=== PATIENT | female | born 1960 | race Caucasian/White ===

== ENCOUNTER 2016-12-07 10:35 | Day surgery (SDC) | payer OTHER ==
[2016-12-07 11:15] VITALS: BMI 36.7
[2016-12-07] MEDS ORDERED: Lidocaine 2% Inj (20ml) ONE (11:31)
[2016-12-07] MEDS ORDERED: Iodixanol 320 MG/ML 100 ML BOTTLE IV ONE (11:32)
[2016-12-07] MEDS ORDERED: Nitroglycerin 50mg in D5W 0 MG/0 ML BOTTLE IV ONE (11:32)
[2016-12-07 11:37] LABS: ADD MANUAL DIFF? NO
[2016-12-07] MEDS ORDERED: Midazolam 2 MG/2 ML VIAL ONE (11:38)
[2016-12-07 11:43] LABS: BASO # 0.04 K/mm3 (0.0-2.0); BASO % 0.4 % (0.0-3.0); GRAN # 6.67 (1.4-6.5); GRAN % 65.3 % (50.0-68.0); HEMATOCRIT 36.5 % (36.0-48.0); LYMPH # 3.1 (1.2-3.4); MEAN CELL VOLUME 89.2 fL (80.0-105.0); MEAN CORPUSCULAR HEMOGLOBIN 29.3 pg (25.0-35.0); MEAN CORPUSCULAR HGB CONC 32.9 g/dl (31.0-37.0); MEAN PLATELET VOLUME 9.9 fl (7.0-11.0); MONO # 0.4 (0.1-0.6); MONO % 4.3 % (1.0-6.0); PLATELET COUNT 355 10^3/uL (120.0-450.0); RED CELL DISTRIBUTION WIDTH 14.8 % (11.5-14.5); WHITE BLOOD COUNT 10.2 10^3/ul (4.5-11.0)
[2016-12-07 11:51] LABS: CALCIUM 9.7 mg/dL (8.4-10.5); POTASSIUM 5.4 mmol/L (3.6-5.0)
[2016-12-07 12:00] LABS: INR 1.01 (0.93-1.08); PARTIAL THROMBOPLASTIN TIME 26.1 Seconds (23.7-30.8)
--- NOTE | 2016-12-07 12:28 | CP.SDSHP ---
Same Day Surgery H & P - History Proposed Procedure: left arm fistulogram. Pre-Op Diagnosis: dysfunctional fistula /ESRD. - Previous Medical/Surgical History Cardiac: Hypertension, ASHD/CAD Endocrine/Metabolic: Diabetes, Obesity, Renal Disease Neuro: Backaches - Allergies Allergies: Allergies No Known Allergies Allergy (Verified 08/27/16 11:56) - Physical Exam General Appearance: wnl. Vital Signs: Vital Signs 12/07/16 11:20 Temperature 97.8 F Pulse Rate 68 Respiratory 20 Rate Blood Pressure 153/74 H O2 Sat by Pulse 98 Oximetry Mental Status: Alert & Oriented x3 Neuro: WNL Heart: WNL Lungs: WNL GI: WNL - {Optional Preform as Required} Other Pertinent Findings: hyperlipidemia. - Impression Impression: dysfunctional fistula. - Date & Time Date: 12/07/16 Time: 12:28 Short Stay Discharge - Short Stay Discharge Admitting Diagnosis/Reason for Visit: ESRD N18.6 Disposition: HOME/ ROUTINE Referrals: Jose Benavidez MD [Primary Care Provider] -
[2016-12-07] MEDS ORDERED: Oxycodone/Acetaminophen 5/325 mg Tab PO PRN (13:36)
[2016-12-07 14:30] VITALS: BP 173/78; PULSE 64; RESP 18; TEMP 97.7; O2SAT 99
--- NOTE | 2016-12-07 16:41 | VASCULAR ---
PROCEDURE: 1. Left upper extremity AV fistula angiogram HISTORY: End-stage renal disease. Malfunctioning AV access PHYSICIAN(S): Alf Lobato MD. TECHNIQUE: The relative risks and indications of the procedure were explained to the patient and her family and consent obtained. The patient was placed supine on the angiography table and the left arm prepped and draped in usual sterile fashion. Conscious sedation and monitoring provided throughout the procedure by a nurse. The left arm AV fistula was punctured near the elbow in an antegrade direction with a micropuncture set. A 5 Yoruba catheter was placed. An overlapping left upper extremity AV fistula angiogram was performed. Central venous imaging was obtained. A blood pressure cuff was applied near the access site and reflux of the arterial anastomosis performed. The catheter was removed and hemostasis obtained. FINDINGS: The patient's left brachial - cephalic fistula is patent. The arterial anastomosis is patent. The left cephalic vein is well developed. The drainage of the left cephalic vein centrally is bifid. There is a moderate stenosis in 1 of the branches but the drainage appears adequate without numerous collaterals seen. No intervention was performed. The left axillary vein, left subclavian vein, left innominate vein, and SVC are widely patent. IMPRESSION: 1. Patent left upper extremity AV fistula.
== END 2016-12-07 15:00 | disposition home or self-care (01) ==
LOC: SDSVAS 10:35
PROVIDERS: ATTEND Radiology Vascular & Interventional Radiology
DX: T82.511A Breakdown (mechanical) of surgically created arteriovenous shunt, initial encounter (principal); I12.0 Hypertensive chronic kidney disease with stage 5 chronic kidney disease or end stage renal disease; E11.22 Type 2 diabetes mellitus with diabetic chronic kidney disease; N18.6 End stage renal disease; I25.10 Atherosclerotic heart disease of native coronary artery without angina pectoris; E78.5 Hyperlipidemia, unspecified; Z99.2 Dependence on renal dialysis; Y83.2 Surgical operation with anastomosis, bypass or graft as the cause of abnormal reaction of the patient, or of later complication, without mention of misadventure at the time of the procedure; Z79.4 Long term (current) use of insulin

== ENCOUNTER 2017-01-05 15:32 | Emergency (ER) | payer OTHER ==
[2017-01-05 15:32] VITALS: BMI 36.7
[2017-01-05 16:12] VITALS: TEMP 97.5
--- NOTE | 2017-01-05 16:19 | RAD ---
HISTORY: sob r/o pna COMPARISON: 09/22/2016. FINDINGS: LUNGS: The lungs are clear. There is linear atelectasis in the left mid lung. There is mild pulmonary venous congestion. PLEURA: No significant pleural effusion identified, no pneumothorax apparent. CARDIOVASCULAR: There is persistent mild cardiomegaly. OSSEOUS STRUCTURES: No significant abnormalities. VISUALIZED UPPER ABDOMEN: Normal. OTHER FINDINGS: None. IMPRESSION: No active pulmonary disease. Persistent cardiomegaly and mild pulmonary venous congestion.
--- NOTE | 2017-01-05 16:25 | ED PDOC ---
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 As per triage note patient was sent for chest pain, however upon interviewing patient she denies cp using grinder dresser grinder dresser Peter Prieto. Patient states when she lies flat she gets sob, and at the HD center she was lying flat for 4 hours. Patient denies cough, denies fever or chills, denies headache, dizziness, denies lightheadedness, denies n/v/d. (Patricia Enriquez) Past Medical History - Provider Review Nursing Documentation Reviewed: Yes - Travel History Have you recently traveled outside [place] w/in the past 3 mons?: No - Infectious Disease Hx of Infectious Diseases: None - Cardiac Hx Pacemaker: No - Pulmonary Hx Respiratory Disorders: Yes Hx Asthma: Yes - Neurological Hx Paralysis: No - HEENT Hx HEENT Disorder: No - Renal Hx Dialysis: Yes Date of Last Dialysis Treatment: 08/27/16 - Endocrine/Metabolic Hx Diabetes Mellitus Type 2: Yes - Hematological/Oncological Hx Blood Transfusions: Yes Hx Blood Transfusion Reaction: No - Integumentary Hx Dermatological Disorder: No - Musculoskeletal/Rheumatological Hx Musculoskeletal Disorders: Yes - Gastrointestinal Hx Gastrointestinal Disorders: No - Genitourinary/Gynecological Other/Comment: ureremic encephalopathy - Psychiatric Hx Emotional Abuse: No Hx Physical Abuse: No Hx Substance Use: No - Surgical History Other/Comment: left upper arm av fistula - Anesthesia Hx Anesthesia Reactions: No Hx Malignant Hyperthermia: No - Suicidal Assessment Feels Threatened In Home Enviroment: No <Patricia Enriquez - Last Filed: 01/05/17 17:40> Family/Social History - Physician Review Nursing Documentation Reviewed: Yes Family/Social History: Diabetes, Hypertension, CAD/AL Smoking Status: Never Smoked Hx Alcohol Use: No Hx Substance Use: No <Patricia Enriquez - Last Filed: 01/05/17 17:40> Allergies/Home Meds <Patricia Enriquez - Last Filed: 01/05/17 17:40> <Lb Wang - Last Filed: 01/05/17 18:29> Allergies/Adverse Reactions: Allergies No Known Allergies Allergy (Verified 01/05/17 15:47) Home Medications: Home Meds Medication Instructions Recorded Confirmed Carvedilol [Coreg] 12.5 mg PO DAILY 12/07/16 12/07/16 Gabapentin [Neurontin] 300 mg PO TID 12/07/16 12/07/16 Insulin Detemir [Levemir] 18 unit SC HS 12/07/16 12/07/16 Review of Systems - Review of Systems Constitutional: Normal Eyes: Normal ENT: Normal Respiratory: SOB. absent: Cough, Sputum, Wheezing Cardiovascular: Normal Gastrointestinal: Normal Genitourinary Female: Normal Musculoskeletal: Normal Skin: Normal Neurological: Normal Endocrine: Normal Hemo/Lymphatic: Normal Psychiatric: Anxiety <Patricia Enriquez - Last Filed: 01/05/17 17:40> Physical Exam Temperature: Afebrile Blood Pressure: Normal Pulse: Regular Respiratory Rate: Tachypneic Appearance: Positive for: Non-Toxic, Comfortable, Other (anxious) Pain Distress: None Mental Status: Positive for: Alert and Oriented X 3 - Systems Exam Head: Present: Atraumatic, Normocephalic Pupils: Present: PERRL Extroacular Muscles: Present: EOMI Conjunctiva: No: Icteric Mouth: Present: Moist Mucous Membranes Neck: Present: Normal Range of Motion Respiratory/Chest: Present: Clear to Auscultation, Respiratory Distress (mild ) . No: Accessory Muscle Use, Wheezes, Rales Cardiovascular: Present: Regular Rate and Rhythm, Normal S1, S2. No: Murmurs Abdomen: Present: Normal Bowel Sounds. No: Tenderness, Distention Upper Extremity: Present: Normal Inspection. No: Cyanosis, Edema Lower Extremity: Present: Normal Inspection. No: Edema Neurological: Present: GCS=15 Skin: Present: Warm, Dry, Rashes, Normal Color Psychiatric: Present: Alert, Oriented x 3, Anxious <Patricia Enriquez - Last Filed: 01/05/17 17:40> Medical Decision Making Re-evaluation Time: 17:25 Reassessment Condition: Re-examined - EKG Interpretation Interpreted by ED Physician: Yes Type: 12 lead EKG <Patricia Enriquez - Last Filed: 01/05/17 17:40> - Lab Interpretations I have reviewed the lab results: Yes <Javon Wangfadi Brink - Last Filed: 01/05/17 18:29> ED Course and Treatment: 01/05/17 16:27 Patient is a 56 y/o with pmh of IDDM, htn, diabetic neuropathy, h/o diskitis, and ESRD ( on HD , Mon and Monday) c/o sob Differentials: fluid overload 2nd to inadequate HD, pneumonia versus chf versus anxiety. Less likely PE, no PE risk factors. Plan: cbc, cmp, bnp, ekg, chest x-ray attempt bipap. 01/05/17 17:15 On room air , patient is saturating at 100%. Patient 's sob has improved. Patient's daughter and son in law were in the room, and they stats patient told them she was lying in her back for 4 hours in the dialysis and when she woke up she got anxious and short of breath. Patient felt better after she was placed in the upright position and giving oxygen. Patient was also giving a stat dose of Xanax in the ED. Patient states she is feeling better, and the daughter is comfortable taking her home. Patient and family were giving the opportunity to ask questions, patient, and family states they have no questions. (Patricia Enriquez) Patient seen and examined with resident. Came up with treatment and disposition plan with resident. A 56 year old female who presents to the emergency department for evaluation of shortness of breath. Interview with translation monitor Peter Goodwin [id number]. She was lying in dialysis for 4 hours and she never lays flat. She woke up and got anxious because she thought she couldn't breathe. Additional HPI details as noted by the resident. On physical examination the patient appears anxious, is in mild respiratory distress, lungs are clear. EKG, Chest X-ray, lab worked ordered. Patient given Xanax for symptomatic control. EKG shows normal sinus rhythm at 68 BPM. Interpreted by me. CXR nl. 01/05/17 17:07 After oxygen patient felt better and is no longer short of breathe. She is calm and no longer anxious. will remove oxygen and reevaluate. 01/05/17 17:45 Patient no longer has symptoms. No shortness of breathe. Oxy Sat 100%RA. No longer feels anxious. Lungs are clear. She is with daughter who feels comfortable taking her home. (KathleenLb L) - Lab Interpretations Lab Results: 01/05/17 16:18 01/05/17 16:18 Lab Results 01/05/17 16:18: Sodium 136, Chloride 97 L, Potassium 3.6, Carbon Dioxide 24, Anion Gap 19, BUN 31 H, Creatinine 3.9 H, Est GFR ( Amer) 14, Est GFR ( Non-Af Amer) 12, Random Glucose 116 H, Calcium 9.6, Total Bilirubin 0.7, AST 27 , ALT 15, Alkaline Phosphatase 163 H, Lactate Dehydrogenase 521, Total Creatine Kinase 60, Troponin I < 0.01, NT-Pro-B Natriuret Pep 2830 H, Total Protein 8.5 H , Albumin 4.6, Globulin 3.9, Albumin/Globulin Ratio 1.2 01/05/17 16:18: pO2 43, VBG pH 7.54 H, VBG pCO2 34.0 L, VBG HCO3 29.1 H, VBG Total CO2 30.1 H, VBG O2 Sat (Calc) 81.3 H, VBG Base Excess 6.5 H, VBG Potassium 3.7, Sodium 138.0, Chloride 99.0, Glucose 119 H, Lactate 1.4, FiO2 21.0, Venous Blood Potassium 3.7 01/05/17 16:18: PT 10.7, INR 0.99, APTT 28.9 01/05/17 16:18: WBC 9.7, RBC 3.97, Hgb 11.9 L, Hct 35.0 L, MCV 88.2, MCH 30.0, MCHC 34.0, RDW 16.1 H, Plt Count 379, MPV 9.8, Gran % 74.8 H, Lymph % (Auto) 20.0 L, [place] % (Auto) 5.0, Eos % (Auto) 0.0 L, Baso % (Auto) 0.2, Gran # 7.25 H , Lymph # 1.9, [place] # 0.5, Eos # 0.0, Baso # 0.02 - RAD Interpretation Radiology Orders: 01/05/17 16:01 CHEST PORTABLE [RAD] Stat - EKG Interpretation EKG Interpretation (Text): 01/05/17 17:52 NSR at HR of 66 bmp Normal PA interval Mild qtc prolongation No ST/T wave changes. (Patricia Enriquez) - Medication Orders Current Medication Orders: Discontinued Medications Alprazolam (Xanax) 0.25 mg PO STAT STA PRN Reason: Protocol Stop: 01/05/17 16:31 Last Admin: 01/05/17 16:59 Dose: 0.25 mg <Patricia Enriquez - Last Filed: 01/05/17 17:40> - PA / GIFT CONSULTANT / Resident Statement MD/DO has reviewed & agrees with the documentation as recorded. MD/DO has examined the patient and agrees with the treatment plan. - Scribe Statement The provider has reviewed the documentation as recorded by the Scribe <Lb Wang - Last Filed: 01/05/17 18:29> - Scribe Statement Solange Christopher training under [facility] Provider Scribe Attestation: All medical record entries made by the Scribe were at my direction and personally dictated by me. I have reviewed the chart and agree that the record accurately reflects my personal performance of the history, physical exam, medical decision making, and the department course for this patient. I have also personally directed, reviewed, and agree with the discharge instructions and disposition. (Lb Wang) Disposition/Present on Arrival - Present on Arrival Any Indicators Present on Arrival: No History of DVT/PE: No History of Uncontrolled Diabetes: Yes Urinary Catheter: No History of Decub. Ulcer: No History Surgical Site Infection Following: None - Disposition Have Diagnosis and Disposition been Completed?: Yes Disposition Time: 17:35 Patient Plan: Discharge <Patricia Enriquez - Last Filed: 01/05/17 17:40> <Lb Wang - Last Filed: 01/05/17 18:29> - Disposition Diagnosis: Anxiety Disposition: HOME/ ROUTINE Condition: IMPROVED Discharge Instructions (ExitCare): Anxiety (ED) Additional Instructions: Please follow up with Dr Benavidez Please continue with your dialysis as currently scheduled Go tot the nearest emergency room if the symptoms reoccurs or worsens or if you have any new symptoms. Referrals: Jose Benavidez MD [Primary Care Provider] - Follow up with primary
[2017-01-05 16:41] LABS: ADD MANUAL DIFF? NO
[2017-01-05 16:47] LABS: VENOUS BLOOD GAS BASE EXCESS 6.5 mmol/L (0.0-2.0); VENOUS BLOOD PH 7.54 (7.32-7.43)
[2017-01-05 16:56] LABS: ALB/GLOB RATIO 1.2 (1.1-1.8); ALKALINE PHOSPHATASE 163 U/L (38-133); ALT/SGPT 15 U/L (7-56); AST/SGOT 27 U/L (15-39); BILIRUBIN,TOTAL 0.7 mg/dL (0.2-1.3); BLOOD UREA NITROGEN 31 mg/dL (7-21); CALCIUM 9.6 mg/dL (8.4-10.5); CARBON DIOXIDE 24 mmol/L (21-33); CHLORIDE 97 mmol/L (98-107); GFR AFRICAN-AMERICAN 14; GLUCOSE,RANDOM 116 mg/dL (70-110); POTASSIUM 3.6 mmol/L (3.6-5.0); SODIUM 136 mmol/L (132-148); TOTAL PROTEIN 8.5 g/dL (5.8-8.3)
[2017-01-05 16:57] LABS: INR 0.99 (0.93-1.08); PARTIAL THROMBOPLASTIN TIME 28.9 Seconds (23.7-30.8)
[2017-01-05 17:01] LABS: BASO # 0.02 K/mm3 (0.0-2.0); BASO % 0.2 % (0.0-3.0); GRAN # 7.25 (1.4-6.5); GRAN % 74.8 % (50.0-68.0); LYMPH # 1.9 (1.2-3.4); MEAN CELL VOLUME 88.2 fL (80.0-105.0); MEAN PLATELET VOLUME 9.8 fl (7.0-11.0); MONO # 0.5 (0.1-0.6); PLATELET COUNT 379 10^3/uL (120.0-450.0); RED CELL DISTRIBUTION WIDTH 16.1 % (11.5-14.5); WHITE BLOOD COUNT 9.7 10^3/ul (4.5-11.0)
[2017-01-05 17:08] LABS: TROPONIN I < 0.01 ng/mL
[2017-01-05 17:48] VITALS: BP 165/82; PULSE 65; RESP 17; O2SAT 97
--- NOTE | 2017-01-05 23:32 | CARD ---
APPROVED REPORT EKG Measurement Heart [id number] <Conclusion> Normal sinus rhythm Prolonged QT Abnormal ECG
== END 2017-01-05 17:45 | disposition home or self-care (01) ==
LOC: ED 15:32
DX: F41.9 Anxiety disorder, unspecified (principal); I12.0 Hypertensive chronic kidney disease with stage 5 chronic kidney disease or end stage renal disease; N18.6 End stage renal disease; Z99.2 Dependence on renal dialysis; E11.9 Type 2 diabetes mellitus without complications

== ENCOUNTER 2017-01-29 13:19 | Observation (INO) | payer OTHER, MEDICAID ==
[2017-01-29 13:21] VITALS: BMI 36.3
--- NOTE | 2017-01-29 14:29 | ED PDOC ---
Arrival/HPI - General Chief Complaint: Shortness Of Breath Time Seen by Provider: 01/29/17 13:47 Historian: Family (Daughter) - History of Present Illness Narrative History of Present Illness (Text): 01/29/17 14:03 A 56 year old female, whose medical history includes ESRD on HD (T,TH,S) and anemia, accompanied by her daughter is presenting to the emergency department for shortness of breath, which began yesterday after dialysis. During dialysis, the patient asked the computer aided design technician to stop the treatment because she wasn't feeling well. The patient is also complaining of dizziness for the past 2 weeks. She notes that the dizziness gets worse with movement. She denies any cough, chest pain, fever, leg swelling, vision changes, or any other complaints at this time. PMD: Dr. Benavidez Time/Duration: 24 hours Symptom Onset: Sudden Symptom Course: Unchanged Activities at Onset: Other (After dialysis) Context: Home Past Medical History - Provider Review Nursing Documentation Reviewed: Yes - Infectious Disease Hx of Infectious Diseases: None - Reproductive Menopause: Yes - Cardiac Hx Pacemaker: No - Pulmonary Hx Respiratory Disorders: Yes Hx Asthma: Yes - Neurological Hx Paralysis: No - HEENT Hx HEENT Disorder: No - Renal Hx Dialysis: Yes Date of Last Dialysis Treatment: 08/27/16 - Endocrine/Metabolic Hx Diabetes Mellitus Type 2: Yes - Hematological/Oncological Hx Blood Transfusions: Yes Hx Blood Transfusion Reaction: No - Integumentary Hx Dermatological Disorder: No - Musculoskeletal/Rheumatological Hx Musculoskeletal Disorders: Yes - Gastrointestinal Hx Gastrointestinal Disorders: No - Genitourinary/Gynecological Other/Comment: ureremic encephalopathy - Psychiatric Hx Emotional Abuse: No Hx Physical Abuse: No Hx Substance Use: No - Surgical History Other/Comment: left upper arm av fistula - Anesthesia Hx Anesthesia Reactions: No Hx Malignant Hyperthermia: No - Suicidal Assessment Feels Threatened In Home Enviroment: No Family/Social History - Physician Review Nursing Documentation Reviewed: Yes Family/Social History: Unknown Family HX Smoking Status: Never Smoked Hx Alcohol Use: No Hx Substance Use: No Allergies/Home Meds Allergies/Adverse Reactions: Allergies No Known Allergies Allergy (Verified 01/29/17 13:33) Home Medications: Home Meds Medication Instructions Recorded Confirmed Carvedilol [Coreg] 12.5 mg PO DAILY 12/07/16 01/29/17 Gabapentin [Neurontin] 300 mg PO TID 12/07/16 01/29/17 Insulin Detemir [Levemir] 18 unit SC HS 12/07/16 01/29/17 Review of Systems - Physician Review All systems were reviewed & negative as marked: Yes - Review of Systems Constitutional: absent: Fevers Eyes: absent: Vision Changes Respiratory: SOB. absent: Cough Cardiovascular: absent: Chest Pain Musculoskeletal: absent: Other (Leg swelling ) Physical Exam - Physical Exam Narrative Physical Exam (Text): 01/29/17 14:03 Constitutional: No acute distress. Head: Normocephalic. Atraumatic. Eyes: PERRL. ENT: Moist mucous membranes. Neck: Supple. Cardiovascular: Regular rate. Chest: No tenderness. Respiratory: Mildly dyspneic. Clear to auscultation bilaterally. GI: Soft. Nontender. Nondistended. Back: No CVA tenderness. Musculoskeletal: No tenderness or swelling of extremities. Skin: No rash. Neurologic: Alert, no focal deficit. Anxious. Physical Exam Limitations: Other (Poor historian ) Vital Signs Reviewed: Yes Vital Signs Temp Pulse Resp BP Pulse Ox 01/29/17 19:10 70 16 130/69 97 01/29/17 15:59 67 16 127/66 97 01/29/17 13:39 98.0 F 74 18 139/75 100 Temperature: Afebrile Blood Pressure: Normal Pulse: Regular Respiratory Rate: Normal Appearance: Positive for: Well-Appearing, Non-Toxic, Comfortable Pain Distress: None Mental Status: Positive for: Alert and Oriented X 3 Finger Stick Blood Glucose: 105 Medical Decision Making ED Course and Treatment: 01/29/17 14:03 Impression: 56 year old female with shortness of breath. Differential Diagnosis included but are not limited to: Plan: -- EKG -- Chest X-Ray -- Labs -- Antivert -- Reassess and disposition Prior Visits: Notes and results from previous visits were reviewed. On 01/05/17 patient came in complaining of chest pain. Patient was discharged. Progress Notes: EKG: Ordered, reviewed, and independently interpreted the EKG. Rate : 70 BPM Rhythm : SR Interpretation : No ST changes. Comparison : No changes from previous EKG on 01/05/17 . Chest X-ray 01/29/17 14:37 Creator : Morales Casiano MD HISTORY: dyspnea COMPARISON: Comparison chest dated 01/05/2017 IMPRESSION: Poor inspiration with low lung volumes, crowded bronchovascular markings and mild bibasilar atelectasis left greater than right. - Lab Interpretations Lab Results: 01/29/17 14:30 01/29/17 15:10 Lab Results 01/29/17 15:10: Sodium 140, Potassium 4.0, Chloride 98, Carbon Dioxide 27, Anion Gap 19, BUN 52 H, Creatinine 5.7 H, Est GFR ( Amer) 9, Est GFR (Non -Af Amer) 8, Random Glucose 39 L* D, Calcium 9.4, Total Bilirubin 0.7, AST 36, ALT 19, Alkaline Phosphatase 115, Total Creatine Kinase 31 L, Troponin I < 0.01 , NT-Pro-B Natriuret Pep 1120 H, Total Protein 7.8, Albumin 4.1, Globulin 3.6, Albumin/Globulin Ratio 1.1 01/29/17 14:30: PT 12.0 H, INR 1.11 H, APTT 28.3 01/29/17 14:30: WBC 10.3, RBC 3.77, Hgb 11.6 L, Hct 35.3 L, MCV 93.6, MCH 30.8, MCHC 32.9, RDW 16.6 H, Plt Count 342, MPV 9.9, Gran % 60.8, Lymph % (Auto) 32.8 , [place] % (Auto) 6.1 H, Eos % (Auto) 0.0 L, Baso % (Auto) 0.3, Gran # 6.23, Lymph # 3.4, [place] # 0.6, Eos # 0.0, Baso # 0.03 I have reviewed the lab results: Yes - RAD Interpretation Radiology Orders: 01/29/17 14:17 CHEST PORTABLE [RAD] Stat - Medication Orders Current Medication Orders: Amlodipine Besylate (Norvasc) 10 mg PO DAILY [facility] Aspirin (Ecotrin) 81 mg PO DAILY [facility] Atorvastatin Calcium (Lipitor) 40 mg PO DAILY [facility] Calcium Acetate (Phoslo) 667 mg PO WM [facility] Carvedilol (Coreg) 12.5 mg PO DAILY [facility] Gabapentin (Neurontin) 300 mg PO TID [facility] PRN Reason: Protocol Hydralazine HCl (Apresoline) 50 mg PO BID [facility] Sodium Chloride (Sodium Chloride 0.9%) 150 mls @ 150 mls/hr IV .Q1H [facility] Insulin Detemir (Levemir) 18 unit SC HS [facility] Insulin Human Lispro (Humalog Low) 0 units SC ACHS [facility] PRN Reason: Protocol Isosorbide Mononitrate (Imdur) 60 mg PO DAILY [facility] Meclizine HCl (Antivert) 25 mg PO Q6H PRN PRN Reason: Dizziness Ondansetron HCl (Zofran Inj) 4 mg IVP Q6H PRN PRN Reason: Nausea/Vomiting Pantoprazole Sodium (Protonix Inj) 40 mg IVP DAILY [facility] Vitamin B Complex/Vit C/Folic Acid (Nephro-Raji) 1 tab PO DAILY [facility] Discontinued Medications Alprazolam (Xanax) 0.5 mg PO STAT STA PRN Reason: Protocol Stop: 01/29/17 16:14 Last Admin: 01/29/17 16:25 Dose: 0.5 mg Insulin Detemir (Levemir) 18 unit SC HS [facility] Meclizine HCl (Antivert) 50 mg PO STAT STA Stop: 01/29/17 14:18 Last Admin: 01/29/17 14:42 Dose: 50 mg ED OBSERVATION Date of observation admission: 01/29/17 Time of observation admission: 15:55 - Observation admission statement Patient is being placed in observation because:: intractible dizziness - Goals of Observation Goals of observation are:: monitoring prior to CT Head - Progress Note Progress Note: 1555 Patient continues to have dizziness. Will send for CT. 1649 Patient was found to be hypoglycemic but awake and alert. She was given juice. She was heard exclaiming from her stretcher that she wants cookies. She had a chicken sandwich next to her but will not eat it because she wants something sweet. Daughter states the patient does this frequently at home, shouting when she wants something to eat or when she feels dizzy. Family at bedside states she has been having this dizziness for a very long time. I gave the patient Meclizine and Xanax but she continues to have dizziness. Pending CT. 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 Will admit for intractible dizziness, hypoglycemia, dyspnea. - Scribe Statement The provider has reviewed the documentation as recorded by the Flakitaibclaudette Christopher Provider Scribe Attestation: All medical record entries made by the Scribe were at my direction and personally dictated by me. I have reviewed the chart and agree that the record accurately reflects my personal performance of the history, physical exam, medical decision making, and the department course for this patient. I have also personally directed, reviewed, and agree with the discharge instructions and disposition. Disposition/Present on Arrival - Present on Arrival Any Indicators Present on Arrival: Yes History of DVT/PE: No History of Uncontrolled Diabetes: Yes Urinary Catheter: No History of Decub. Ulcer: No History Surgical Site Infection Following: None - Disposition Have Diagnosis and Disposition been Completed?: Yes Diagnosis: Dizziness, Hypoglycemia, Dyspnea Disposition: HOSPITALIZED Disposition Time: 15:55 Patient Plan: Admission Condition: FAIR
--- NOTE | 2017-01-29 14:34 | RAD ---
HISTORY: dyspnea COMPARISON: Comparison chest dated 01/05/2017 FINDINGS: LUNGS: Poor inspiration with low lung volumes, crowded bronchovascular markings and mild bibasilar atelectasis left greater than right. PLEURA: No significant pleural effusion identified, no pneumothorax apparent. CARDIOVASCULAR: Heart appears mildly enlarged. OSSEOUS STRUCTURES: No significant abnormalities. VISUALIZED UPPER ABDOMEN: Normal. OTHER FINDINGS: None. IMPRESSION: Poor inspiration with low lung volumes, crowded bronchovascular markings and mild bibasilar atelectasis left greater than right.
[2017-01-29 14:55] LABS: BASO # 0.03 K/mm3 (0.0-2.0); BASO % 0.3 % (0.0-3.0); GRAN # 6.23 (1.4-6.5); GRAN % 60.8 % (50.0-68.0); HEMOGLOBIN 11.6 gm/dL (12.0-16.0); LYMPH # 3.4 (1.2-3.4); LYMPH % 32.8 % (22.0-35.0); MEAN CELL VOLUME 93.6 fL (80.0-105.0); MEAN CORPUSCULAR HEMOGLOBIN 30.8 pg (25.0-35.0); MEAN CORPUSCULAR HGB CONC 32.9 g/dl (31.0-37.0); MEAN PLATELET VOLUME 9.9 fl (7.0-11.0); MONO # 0.6 (0.1-0.6); MONO % 6.1 % (1.0-6.0); PLATELET COUNT 342 10^3/uL (120.0-450.0); RBC 3.77 10^6/uL (3.5-6.1); RED CELL DISTRIBUTION WIDTH 16.6 % (11.5-14.5); WHITE BLOOD COUNT 10.3 10^3/ul (4.5-11.0)
[2017-01-29 14:59] LABS: INR 1.11 (0.93-1.08); PARTIAL THROMBOPLASTIN TIME 28.3 Seconds (23.7-30.8)
[2017-01-29 15:27] LABS: ALB/GLOB RATIO 1.1 (1.1-1.8); ALBUMIN 4.1 g/dL (3.0-4.8); ALT/SGPT 19 U/L (7-56); AST/SGOT 36 U/L (15-39); BLOOD UREA NITROGEN 52 mg/dL (7-21); CALCIUM 9.4 mg/dL (8.4-10.5); GFR AFRICAN-AMERICAN 9; GFR NON-AFRICAN AMERICAN 8
[2017-01-29 15:39] LABS: B-TYPE NATRIURETIC PEPTIDE 1120 pg/mL (0-450)
[2017-01-29 15:47] LABS: TROPONIN I < 0.01 ng/mL
--- NOTE | 2017-01-29 18:40 | CT ---
EXAM: CT Head Without Intravenous Contrast CLINICAL HISTORY: 56 years old, female; Signs and symptoms; Dizziness; Additional info: Intractible vertigo TECHNIQUE: Axial computed tomography images of the head/brain without intravenous contrast. This CT exam was performed using one or more of the following dose reduction techniques: automated exposure control, adjustment of the mA and/or kV according to patient size, and/or use of iterative reconstruction technique. EXAM DATE/TIME: 01/29/2017 4:47 PM COMPARISON: CT - HEAD W/O CONTRAST 09/22/2016 5:26:25 PM FINDINGS: Artifacts: Motion artifact degrades image quality.Streak artifact degrades image quality. Brain: There is prominence of sulci gyri and ventricles. 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 There are old bilateral lacunar infarcts in the basal ganglia and french radiata. There is no midline shift. There is decreased attenuation in periventricular white matter. There are no focal masses. There are no focal hemorrhages. Heredia-white differentiation is visualized. Ventricles: See above Bones/joints: Bones: Cranial vault is intact. Soft tissues: unremarkable Sinuses: There is no acute sinusitis. Mastoid air cells: Ears and mastoids: Middle ears and mastoids are unremarkable. Orbits: Orbital contents are unremarkable. IMPRESSION: No acute intracranial abnormality, no bleed; atrophy and small vessel disease with multiple old infarcts
--- NOTE | 2017-01-29 21:03 | CP.PCM.HP ---
History of Present Illness - History of Present Illness History of Present Illness: Pt is a 56 yo thai speaking only F with PMHx of ESRD, anemia, IDDM, HLD, and HTN presents with cc of fatigue, dizziness, and minor SOB after HD yesterday. Pt states that she started HD about 7 months ago and gets it 3 times a week (T, , S) through her Left upper arm AV fistula. She states that they normal pull 3 -4 L of fluid off of her during HD. She usually feels fatigued after each HD session, however her symptoms has worsened steadily over the past 3 weeks, the worst being yesterday. Pt states that sitting and ambulation makes her dizziness worse and lying supine improves her symptoms. Pt states that she has received 2 blood transfusions in the past which improved her fatigue. Pt admitted to nausea with vomiting x3 since yesterday and some LE swelling pre-HD , which resolved after HD. Pt has been non-ambulatory for the last 2 years due to generalized and progressive weakness. Pt was given meclizine and xanax in the ED, but her symptoms did not resolve. PMHx: ESRD on HD (T, , S), Anemia, IDDM, HLD, diabetic neuropathy, HTN, CVA ( 2013) Surg: LUE AV fistula FHx: Non-contributory SH: Denied tobacco, EtOH, or illicit drug use All: NKDA Medications: Reviewed and as per chart Present on Admission - Present on Admission Any Indicators Present on Admission: No Review of Systems - Constitutional Constitutional: Fatigue. absent: Chills, Fever, Headache, Weight Gain, Weight Loss Additional comments: Poor appetite - EENT Eyes: Blurred Vision. absent: Diplopia, Pain Ears: absent: Decreased Hearing, Ear Pain, Tinnitus, Abnormal Hearing Nose/Mouth/Throat: absent: Nasal Congestion, Change in Voice, Dysphagia, Sore Throat - Cardiovascular Cardiovascular: absent: Chest Pain, Diaphoresis, Irregular Heart Rhythm, Orthopnea, Rapid Heart Rate, Slow Heart Rate - Respiratory Respiratory: Dyspnea. absent: Cough, Wheezing, Pain on Inspiration - Gastrointestinal Gastrointestinal: absent: Abdominal Pain, Constipation, Diarrhea, Hematemesis - Genitourinary Genitourinary: absent: Difficulty Urinating, Dysuria, Pyuria, Urinary Incontinence - Menstruation Menstruation: Menopausal - Musculoskeletal Musculoskeletal: Numbness, Tingling. absent: Arthralgias, Atrophy - Integumentary Integumentary: Swelling (b/l LE before hemodialysis). absent: New Lesions, Rash , Skin Pain - Neurological Neurological: Dizziness, Paresthesias. absent: Abnormal Hearing, Frequent Falls , Headaches, Syncope - Endocrine Endocrine: Fatigue. absent: Cold Intolorance, Flushing, Heat Intolorance, Polydipsia, Polyphagia, Polyuria - Hematologic/Lymphatic Hematologic: absent: Easy Bleeding, Easy Bruising, Lymphadenopathy Past Patient History - Infectious Disease Hx of Infectious Diseases: None - Past Social History Smoking Status: Never Smoked - CARDIAC Hx Pacemaker: No - PULMONARY Hx Respiratory Disorders: Yes Hx Asthma: Yes - NEUROLOGICAL Hx Paralysis: No - HEENT Hx HEENT Problems: No - RENAL Hx Dialysis: Yes Date of Last Dialysis Treatment: 08/27/16 - ENDOCRINE/METABOLIC Hx Diabetes Mellitus Type 2: Yes - HEMATOLOGICAL/ONCOLOGICAL Hx Blood Transfusions: Yes Hx Blood Transfusion Reaction: No - INTEGUMENTARY Hx Dermatological Problems: No - MUSCULOSKELETAL/RHEUMATOLOGICAL Hx Musculoskeletal Disorders: Yes - GASTROINTESTINAL Hx Gastrointestinal Disorders: No - GENITOURINARY/GYNECOLOGICAL Other/Comment: ureremic encephalopathy - PSYCHIATRIC Hx Emotional Abuse: No Hx Physical Abuse: No Hx Substance Use: No - SURGICAL HISTORY Other/Comment: left upper arm av fistula - ANESTHESIA Hx Anesthesia Reactions: No Hx Malignant Hyperthermia: No Meds Allergies/Adverse Reactions: Allergies Allergy/AdvReac Type Severity Reaction Status Date / Time No Known Allergies Allergy Verified 01/29/17 13:33 Physical Exam - Head Exam Head Exam: ATRAUMATIC, NORMOCEPHALIC - Eye Exam Eye Exam: EOMI, PERRL - ENT Exam ENT Exam: Mucous Membranes Moist - Neck Exam Neck exam: Positive for: Full Rom - Respiratory Exam Respiratory Exam: Clear to Auscultation Bilateral. absent: Rales, Rhonchi, Wheezes - Cardiovascular Exam Cardiovascular Exam: RRR, +S1, +S2. absent: Diastolic murmur, Gallop, Rubs, Systolic Murmur - GI/Abdominal Exam GI & Abdominal Exam: Soft. absent: Distended, Guarding, Rebound, Tenderness - Extremities Exam Additional comments: B/l LE edema 1+/4 - Neurological Exam Neurological exam: Alert, CN II-XII Intact, Oriented x3 Additional comments: Generalized weakness noted, no lateralized weakness s/p CVA. Christopher-hallpike offered, pt declined. Results - Vital Signs Recent Vital Signs: Last Vital Signs Temp 98.0 F 01/29/17 13:39 Pulse 70 01/29/17 19:10 Resp 16 01/29/17 19:10 BP 130/69 01/29/17 19:10 Pulse Ox 97 01/29/17 19:10 - Labs Result Diagrams: 01/29/17 14:30 01/29/17 15:10 Labs: Laboratory Results - last 24 hr 01/29/17 01/29/17 15:56 16:48 POC Glucose (mg/dL) 41 L 117 H Assessment & Plan - Assessment and Plan (Free Text) Assessment: 56 yo Welsh speaking only F with a PMHx of ESRD on HD, anemia, HTN, IDDM, and HLD who is being admitted for evaluation and treament of post-HD vertigo, SOB, and fatigue. 1. Vertigo s/p Hemodialysis -Neuro consulted -F/u carotid doppler -F/u TSH -150 cc NS given -Zofran, Antivert PRN for nausea, dizziness -Attempted to obtain orthostatics, pt non-ambulatory -Pt declined when asked to perform christopher hallpike 2. ESRD -Consult nephro -Creatinine 5.7, cont to monitor -Renal diet -Cv/Cvn Cv Tsc System Operator consulted 3. H/o CVA -Cont ASA, lipitor -Head CT shows atrophy and small vessel disease with multiple small infarcts 4. Possible CHF -BNP 1120 -CXR showed poor inspiration with low lung volumes, crowded bronchovascular markings, and mild bibasilar atelectasis L>R -EKG NSR, Troponin negative -Last Echo 08/02 EF 55% -Cont Coreg 5. Anemia -Hgb 11.6 -Cont to monitor -F/u B12, Folate, Fe, ferritin, TIBC 6. IDDM -Glucose 39 on admission, currently 117; resolved after receiving juice -F/u hemoglobin a1c -Hold insulin until tomorrow, Levemir and Humalog ISS -Fingerstick check q4h -Cont gabapentin for diabetic neuropathy 7. R/o Depression -Psych consulted 8. HLD -F/u lipid panel -Cont Lipitor 9. HTN -BP stable, cont to monitor -Cont hydralazine, norvasc, imdur 10. GI/DVT PPx -Protonix -SCDs Pt seen and discussed in detail with Dr. Caraballo.
[2017-01-29] MEDS ORDERED: Insulin Detemir 100 units/ml Vial (Levemir) SC SCH (22:00)
[2017-01-29] MEDS: Insulin Lispro (humaLOG) LOW Coverage SC SCH (22:09)
[2017-01-30 00:07] VITALS: RESP 20
[2017-01-30 07:07] LABS: MEAN CELL VOLUME 94.1 fL (80.0-105.0); MEAN CORPUSCULAR HEMOGLOBIN 30.9 pg (25.0-35.0); MEAN CORPUSCULAR HGB CONC 32.8 g/dl (31.0-37.0); MEAN PLATELET VOLUME 9.9 fl (7.0-11.0); PLATELET COUNT 345 10^3/uL (120.0-450.0); RBC 3.56 10^6/uL (3.5-6.1); RED CELL DISTRIBUTION WIDTH 16.6 % (11.5-14.5)
[2017-01-30 07:16] LABS: ALB/GLOB RATIO 1.1 (1.1-1.8); ALBUMIN 3.7 g/dL (3.0-4.8); ALT/SGPT 29 U/L (7-56); AST/SGOT 48 U/L (15-39); BLOOD UREA NITROGEN 60 mg/dL (7-21); CALCIUM 8.9 mg/dL (8.4-10.5); GFR AFRICAN-AMERICAN 8; GFR NON-AFRICAN AMERICAN 6; HDL CHOLESTEROL 39 mg/dL (29-60)
[2017-01-30 07:22] LABS: % IRON SATURATION 23 % (20-55); IRON 57 ug/dL (45-180); TOTAL IRON BINDING CAPACITY 246 ug/dL (265-497)
[2017-01-30 07:27] LABS: LDL CHOLESTEROL 70 mg/dL (0-129)
--- NOTE | 2017-01-30 09:08 | CP.PCM.CON ---
<Dionicio Stroud - Last Filed: 01/30/17 13:39> History of Present Illness - History of Present Illness History of Present Illness: PGY-[address] Mcclelland's Neurology Service: Reason for consult: syncope This is a 56 year old belarusian speaking female with PMHx of CVA in 2013, ESRD on hemodialysis, DM, HTN, HLD presenting with fatigue, dizziness, and dyspnea after hemodialysis on Monday. Patient stated that symptoms typically worsen after dialysis and have been worsening for the last 3 weeks. Denies LOC. Sitting and ambulating worsen dizziness and rest relieves it. During this episode, patient also felt generalized tremors and paresthesias in the lips. Patient has been non-ambulatory for the last 2 years due to generalized weakness. Patient has walker at home but is unable to use it regularly due to aforementioned weakness. PMHx: ESRD on HD (, , ), Anemia, DM, HLD, diabetic neuropathy, HTN, CVA ( 2013) PSHx: LUE AV fistula Social: Denies tobacco, alcohol, drug use All: NKDA Home Meds: As per EMR Review of Systems - Constitutional Constitutional: Weakness. absent: Headache - EENT Eyes: absent: Change in Vision - Cardiovascular Cardiovascular: absent: Chest Pain - Respiratory Respiratory: Dyspnea - Gastrointestinal Gastrointestinal: absent: Abdominal Pain, Nausea, Vomiting - Genitourinary Genitourinary: absent: Dysuria - Musculoskeletal Musculoskeletal: Muscle Weakness - Neurological Neurological: Dizziness, Numbness (bilateral feet), Tingling (lips), Weakness Past Patient History - Infectious Disease Hx of Infectious Diseases: None - Past Social History Smoking Status: Never Smoked - CARDIAC Hx Pacemaker: No - PULMONARY Hx Respiratory Disorders: Yes Hx Asthma: Yes - NEUROLOGICAL Hx Paralysis: No - HEENT Hx HEENT Problems: No - RENAL Hx Dialysis: Yes Date of Last Dialysis Treatment: 08/27/16 - ENDOCRINE/METABOLIC Hx Diabetes Mellitus Type 2: Yes - HEMATOLOGICAL/ONCOLOGICAL Hx Blood Transfusions: Yes Hx Blood Transfusion Reaction: No - INTEGUMENTARY Hx Dermatological Problems: No - MUSCULOSKELETAL/RHEUMATOLOGICAL Hx Musculoskeletal Disorders: Yes - GASTROINTESTINAL Hx Gastrointestinal Disorders: No - GENITOURINARY/GYNECOLOGICAL Other/Comment: ureremic encephalopathy - PSYCHIATRIC Hx Emotional Abuse: No Hx Physical Abuse: No Hx Substance Use: No - SURGICAL HISTORY Other/Comment: left upper arm av fistula - ANESTHESIA Hx Anesthesia Reactions: No Hx Malignant Hyperthermia: No Meds Allergies/Adverse Reactions: Allergies Allergy/AdvReac Type Severity Reaction Status Date / Time No Known Allergies Allergy Verified 01/29/17 13:33 - Medications Medications: Current Medications Amlodipine Besylate (Norvasc) 10 mg PO DAILY [facility] Aspirin (Ecotrin) 81 mg PO DAILY [facility] Atorvastatin Calcium (Lipitor) 40 mg PO DAILY [facility] Calcium Acetate (Phoslo) 667 mg PO WM [facility] Last Admin: 01/30/17 08:53 Dose: 667 mg Carvedilol (Coreg) 12.5 mg PO DAILY [facility] Gabapentin (Neurontin) 300 mg PO TID [facility] PRN Reason: Protocol Hydralazine HCl (Apresoline) 50 mg PO BID [facility] Last Admin: 01/29/17 22:10 Dose: 50 mg Insulin Detemir (Levemir) 18 unit SC HS [facility] Insulin Human Lispro (Humalog Low) 0 units SC ACHS [facility] PRN Reason: Protocol Last Admin: 01/29/17 22:09 Dose: Not Given Isosorbide Mononitrate (Imdur) 60 mg PO DAILY [facility] Meclizine HCl (Antivert) 25 mg PO Q6H PRN PRN Reason: Dizziness Ondansetron HCl (Zofran Inj) 4 mg IVP Q6H PRN PRN Reason: Nausea/Vomiting Pantoprazole Sodium (Protonix Inj) 40 mg IVP DAILY [facility] Vitamin B Complex/Vit C/Folic Acid (Nephro-Raji) 1 tab PO DAILY [facility] Results - Vital Signs Recent Vital Signs: Last Vital Signs Temp 98.2 F 01/30/17 07:28 Pulse 76 01/30/17 07:28 Resp 20 01/30/17 07:28 BP 139/80 01/30/17 07:28 Pulse Ox 97 01/30/17 07:28 - Labs Result Diagrams: 01/30/17 06:35 01/30/17 06:35 Labs: Laboratory Results - last 24 hr 01/29/17 01/29/17 01/30/17 15:56 16:48 05:00 WBC RBC Hgb Hct MCV MCH MCHC RDW Plt Count MPV Retic Count Sodium Potassium Chloride Carbon Dioxide Anion Gap BUN Creatinine Est GFR ( Amer) Est GFR (Non-Af Amer) POC Glucose (mg/dL) 41 L 117 H Random Glucose Calcium Iron 57 TIBC 246 L % Saturation 23 Total Bilirubin AST ALT Alkaline Phosphatase Total Protein Albumin Globulin Albumin/Globulin Ratio Triglycerides Cholesterol LDL Cholesterol Direct HDL Cholesterol TSH 3rd Generation 01/30/17 01/30/17 01/30/17 06:35 06:35 06:35 WBC 10.0 RBC 3.56 Hgb 11.0 L Hct 33.5 L MCV 94.1 MCH 30.9 MCHC 32.8 RDW 16.6 H Plt Count 345 MPV 9.9 Retic Count 2.54 H Sodium 138 Potassium 4.3 Chloride 96 L Carbon Dioxide 27 Anion Gap 19 BUN 60 H Creatinine 6.8 H Est GFR ( Amer) 8 Est GFR (Non-Af Amer) 6 POC Glucose (mg/dL) Random Glucose 108 Calcium 8.9 Iron TIBC % Saturation Total Bilirubin 0.6 AST 48 H ALT 29 Alkaline Phosphatase 111 Total Protein 7.1 Albumin 3.7 Globulin 3.3 Albumin/Globulin Ratio 1.1 Triglycerides 86 Cholesterol 141 LDL Cholesterol Direct 70 HDL Cholesterol 39 TSH 3rd Generation 1.42 Assessment & Plan - Assessment and Plan (Free Text) Assessment: This is a 56 year old belarusian speaking female with PMHx of CVA in 2013, ESRD on hemodialysis, DM, HTN, HLD presenting with fatigue, dizziness, and dyspnea after hemodialysis on Monday. This is likely due to a period of hypoglycemia. Initial blood glucose recorded as 39. Patient is also chronically anemic. Patient also has gait dysfunction secondary to chronic deconditioned status. Plan: 1) Maintain blood glucose 140-180. 2) Avoid hypoglycemic episodes. 3) Meclizine 25 mg Q6H prn dizziness 4) PT eval Patient is neurologically stable Thank you for this consult. Case discussed with Dr. Krystin Stroud, PGY-1 - Date & Time Date: 01/30/17 Time: 09:52 <Dionicio Mcclelland - Last Filed: 01/30/17 14:59> Meds - Medications Medications: Current Medications Amlodipine Besylate (Norvasc) 10 mg PO DAILY [facility] Last Admin: 01/30/17 11:08 Dose: 10 mg Aspirin (Ecotrin) 81 mg PO DAILY [facility] Last Admin: 01/30/17 11:10 Dose: 81 mg Atorvastatin Calcium (Lipitor) 40 mg PO DAILY [facility] Last Admin: 01/30/17 11:09 Dose: 40 mg Calcium Acetate (Phoslo) 667 mg PO WM [facility] Last Admin: 01/30/17 08:53 Dose: 667 mg Carvedilol (Coreg) 12.5 mg PO DAILY [facility] Last Admin: 01/30/17 11:09 Dose: 12.5 mg Gabapentin (Neurontin) 300 mg PO TID [facility] PRN Reason: Protocol Last Admin: 01/30/17 11:09 Dose: 300 mg Hydralazine HCl (Apresoline) 50 mg PO BID [facility] Last Admin: 01/30/17 11:10 Dose: 50 mg Insulin Human Lispro (Humalog Low) 0 units SC ACHS [facility] PRN Reason: Protocol Last Admin: 01/30/17 12:35 Dose: Not Given Isosorbide Mononitrate (Imdur) 60 mg PO DAILY [facility] Last Admin: 01/30/17 11:09 Dose: 60 mg Meclizine HCl (Antivert) 25 mg PO Q6H PRN PRN Reason: Dizziness Ondansetron HCl (Zofran Inj) 4 mg IVP Q6H PRN PRN Reason: Nausea/Vomiting Pantoprazole Sodium (Protonix Inj) 40 mg IVP DAILY [facility] Last Admin: 01/30/17 11:11 Dose: 40 mg Vitamin B Complex/Vit C/Folic Acid (Nephro-Raji) 1 tab PO DAILY [facility] Last Admin: 01/30/17 11:09 Dose: 1 tab Results - Vital Signs Recent Vital Signs: Last Vital Signs Temp 98.2 F 01/30/17 07:28 Pulse 76 01/30/17 11:10 Resp 20 01/30/17 07:28 BP 139/80 01/30/17 11:10 Pulse Ox 97 01/30/17 07:28 - Labs Result Diagrams: 01/30/17 06:35 01/30/17 06:35 Labs: Laboratory Results - last 24 hr 01/29/17 01/29/17 01/30/17 15:56 16:48 05:00 WBC RBC Hgb Hct MCV MCH MCHC RDW Plt Count MPV Retic Count Sodium Potassium Chloride Carbon Dioxide Anion Gap BUN Creatinine Est GFR ( Amer) Est GFR (Non-Af Amer) POC Glucose (mg/dL) 41 L 117 H Random Glucose Hemoglobin A1c Calcium Iron 57 TIBC 246 L % Saturation 23 Ferritin Total Bilirubin AST ALT Alkaline Phosphatase Total Protein Albumin Globulin Albumin/Globulin Ratio Triglycerides Cholesterol LDL Cholesterol Direct HDL Cholesterol Vitamin B12 Folate TSH 3rd Generation 01/30/17 01/30/17 01/30/17 06:35 06:35 06:35 WBC 10.0 RBC 3.56 Hgb 11.0 L Hct 33.5 L MCV 94.1 MCH 30.9 MCHC 32.8 RDW 16.6 H Plt Count 345 MPV 9.9 Retic Count 2.54 H Sodium 138 Potassium 4.3 Chloride 96 L Carbon Dioxide 27 Anion Gap 19 BUN 60 H Creatinine 6.8 H Est GFR ( Amer) 8 Est GFR (Non-Af Amer) 6 POC Glucose (mg/dL) Random Glucose 108 Hemoglobin A1c 6.5 Calcium 8.9 Iron TIBC % Saturation Ferritin 299.0 Total Bilirubin 0.6 AST 48 H ALT 29 Alkaline Phosphatase 111 Total Protein 7.1 Albumin 3.7 Globulin 3.3 Albumin/Globulin Ratio 1.1 Triglycerides 86 Cholesterol 141 LDL Cholesterol Direct 70 HDL Cholesterol 39 Vitamin B12 813 Folate > 20.0 TSH 3rd Generation 01/30/17 06:35 WBC RBC Hgb Hct MCV MCH MCHC RDW Plt Count MPV Retic Count Sodium Potassium Chloride Carbon Dioxide Anion Gap BUN Creatinine Est GFR ( Amer) Est GFR (Non-Af Amer) POC Glucose (mg/dL) Random Glucose Hemoglobin A1c Calcium Iron TIBC % Saturation Ferritin Total Bilirubin AST ALT Alkaline Phosphatase Total Protein Albumin Globulin Albumin/Globulin Ratio Triglycerides Cholesterol LDL Cholesterol Direct HDL Cholesterol Vitamin B12 Folate TSH 3rd Generation 1.42 Attending/Attestation - Attestation I have personally seen and examined this patient.: Yes I have fully participated in the care of the patient.: Yes I have reviewed all pertinent clinical information: Yes
[2017-01-30] MEDS: Multivitamin Vitamin B Complex (Nephro-Vite) Tab PO SCH (11:09)
[2017-01-30] MEDS: Insulin Lispro (humaLOG) LOW Coverage SC SCH ×4 (11:11→21:30)
[2017-01-30 12:48] LABS: FOLATE > 20.0 ng/mL
--- NOTE | 2017-01-30 15:37 | CP.PCM.CON ---
History of Present Illness - History of Present Illness History of Present Illness: shortly patient is a 56 year old Croatian speaking female, ith multiple medical issues includingCVA in 2013, ESRD on hemodialysis, DM, HTN, HLD, was admitted on the medical side for evaluation of fatigue, dizziness, and dyspnea after hemodialysis on Monday. psych consult was called for evaluation of depressive symptoms. Patient was seen and examined this commercial lines underwriter utilized [employer] translation services ([place] [id number]). Pt Presented to be alert, oriented in self, time, place, patient has circumstantial and tangential as well as over including thought process. patient reports thatthat she feels "little better at the moment of the interview. patient reported thatat times she feels ddepressed, denied feeling of hopelessness, denied feeling of helplessness, denied thoughts of harming herself or others. Patient also reported to have interrupted denied sleep. Patient denied feeling anxious. Patientdenied hearing voices or seeing things, patient denied paranoid ideations. Patient denied using drugs, denied alcohol consumption, denied smoking. Patient reported that she lives with her family, patient reported being treated "very well". Past psychiatric history: Patient denied history of being admitted to psychiatric inpatient units, denied history of suicidal attempts, denied history of being admitted to psychiatric inpatient unit. Patient was seen by neurology team. Case was discussed with Dr. Shirley. mental status examination: Patient presented to be alert, oriented, intermittent eye contact, mood described I'm depressed at times", affect was reactive, mood congruent, thought process is circumstantial, tangential (could be cultural aspect). Thought content: Patient denied visual, auditory, tactile hallucinations, patient denied paranoid ideations, patient does not present to be psychotic, insight and judgment appear, impulses are well controlled. Impression: Rule out mood disorder due to general medical condition Plan: continue current management, there is no need to start psychotropic medications , patient has good appetite and sleep, patient denied thoughts of harming herself or others, denied intent or plan, not in imminent danger to self or others, this commercial lines underwriter will sign off, should you have any questions, give me a call back Past Patient History - Infectious Disease Hx of Infectious Diseases: None - Past Social History Smoking Status: Never Smoked - CARDIAC Hx Pacemaker: No - PULMONARY Hx Respiratory Disorders: Yes Hx Asthma: Yes - NEUROLOGICAL Hx Paralysis: No - HEENT Hx HEENT Problems: No - RENAL Hx Dialysis: Yes Date of Last Dialysis Treatment: 08/27/16 - ENDOCRINE/METABOLIC Hx Diabetes Mellitus Type 2: Yes - HEMATOLOGICAL/ONCOLOGICAL Hx Blood Transfusions: Yes Hx Blood Transfusion Reaction: No - INTEGUMENTARY Hx Dermatological Problems: No - MUSCULOSKELETAL/RHEUMATOLOGICAL Hx Musculoskeletal Disorders: Yes - GASTROINTESTINAL Hx Gastrointestinal Disorders: No - GENITOURINARY/GYNECOLOGICAL Other/Comment: ureremic encephalopathy - PSYCHIATRIC Hx Emotional Abuse: No Hx Physical Abuse: No Hx Substance Use: No - SURGICAL HISTORY Other/Comment: left upper arm av fistula - ANESTHESIA Hx Anesthesia Reactions: No Hx Malignant Hyperthermia: No Meds Allergies/Adverse Reactions: Allergies Allergy/AdvReac Type Severity Reaction Status Date / Time No Known Allergies Allergy Verified 01/29/17 13:33 - Medications Medications: Current Medications Amlodipine Besylate (Norvasc) 10 mg PO DAILY [facility] Last Admin: 01/30/17 11:08 Dose: 10 mg Aspirin (Ecotrin) 81 mg PO DAILY [facility] Last Admin: 01/30/17 11:10 Dose: 81 mg Atorvastatin Calcium (Lipitor) 40 mg PO DAILY [facility] Last Admin: 01/30/17 11:09 Dose: 40 mg Calcium Acetate (Phoslo) 667 mg PO WM [facility] Last Admin: 01/30/17 15:09 Dose: Not Given Carvedilol (Coreg) 12.5 mg PO DAILY [facility] Last Admin: 01/30/17 11:09 Dose: 12.5 mg Gabapentin (Neurontin) 300 mg PO TID [facility] PRN Reason: Protocol Last Admin: 01/30/17 15:00 Dose: 300 mg Hydralazine HCl (Apresoline) 50 mg PO BID [facility] Last Admin: 01/30/17 11:10 Dose: 50 mg Insulin Human Lispro (Humalog Low) 0 units SC ACHS [facility] PRN Reason: Protocol Last Admin: 01/30/17 12:35 Dose: Not Given Isosorbide Mononitrate (Imdur) 60 mg PO DAILY [facility] Last Admin: 01/30/17 11:09 Dose: 60 mg Meclizine HCl (Antivert) 25 mg PO Q6H PRN PRN Reason: Dizziness Ondansetron HCl (Zofran Inj) 4 mg IVP Q6H PRN PRN Reason: Nausea/Vomiting Pantoprazole Sodium (Protonix Inj) 40 mg IVP DAILY [facility] Last Admin: 01/30/17 11:11 Dose: 40 mg Vitamin B Complex/Vit C/Folic Acid (Nephro-Raji) 1 tab PO DAILY [facility] Last Admin: 01/30/17 11:09 Dose: 1 tab Results - Vital Signs Recent Vital Signs: Last Vital Signs Temp 98.2 F 01/30/17 07:28 Pulse 76 01/30/17 11:10 Resp 20 01/30/17 07:28 BP 139/80 01/30/17 11:10 Pulse Ox 97 01/30/17 07:28 - Labs Result Diagrams: 01/30/17 06:35 01/30/17 06:35 Labs: Laboratory Results - last 24 hr 01/29/17 01/29/17 01/30/17 15:56 16:48 05:00 WBC RBC Hgb Hct MCV MCH MCHC RDW Plt Count MPV Retic Count Sodium Potassium Chloride Carbon Dioxide Anion Gap BUN Creatinine Est GFR ( Amer) Est GFR (Non-Af Amer) POC Glucose (mg/dL) 41 L 117 H Random Glucose Hemoglobin A1c Calcium Iron 57 TIBC 246 L % Saturation 23 Ferritin Total Bilirubin AST ALT Alkaline Phosphatase Total Protein Albumin Globulin Albumin/Globulin Ratio Triglycerides Cholesterol LDL Cholesterol Direct HDL Cholesterol Vitamin B12 Folate TSH 3rd Generation 01/30/17 01/30/17 01/30/17 06:35 06:35 06:35 WBC 10.0 RBC 3.56 Hgb 11.0 L Hct 33.5 L MCV 94.1 MCH 30.9 MCHC 32.8 RDW 16.6 H Plt Count 345 MPV 9.9 Retic Count 2.54 H Sodium 138 Potassium 4.3 Chloride 96 L Carbon Dioxide 27 Anion Gap 19 BUN 60 H Creatinine 6.8 H Est GFR ( Amer) 8 Est GFR (Non-Af Amer) 6 POC Glucose (mg/dL) Random Glucose 108 Hemoglobin A1c 6.5 Calcium 8.9 Iron TIBC % Saturation Ferritin 299.0 Total Bilirubin 0.6 AST 48 H ALT 29 Alkaline Phosphatase 111 Total Protein 7.1 Albumin 3.7 Globulin 3.3 Albumin/Globulin Ratio 1.1 Triglycerides 86 Cholesterol 141 LDL Cholesterol Direct 70 HDL Cholesterol 39 Vitamin B12 813 Folate > 20.0 TSH 3rd Generation 01/30/17 06:35 WBC RBC Hgb Hct MCV MCH MCHC RDW Plt Count MPV Retic Count Sodium Potassium Chloride Carbon Dioxide Anion Gap BUN Creatinine Est GFR ( Amer) Est GFR (Non-Af Amer) POC Glucose (mg/dL) Random Glucose Hemoglobin A1c Calcium Iron TIBC % Saturation Ferritin Total Bilirubin AST ALT Alkaline Phosphatase Total Protein Albumin Globulin Albumin/Globulin Ratio Triglycerides Cholesterol LDL Cholesterol Direct HDL Cholesterol Vitamin B12 Folate TSH 3rd Generation 1.42
--- NOTE | 2017-01-30 16:54 | US ---
PROCEDURE: Bilateral carotid artery duplex ultrasound HISTORY: Carotid stenosis syncope PHYSICIAN(S): Alf Lobato MD. TECHNIQUE: Duplex sonography and color-flow Doppler were used to evaluate the carotid bifurcations and limited segments of the vertebral arteries bilaterally. FINDINGS: There is mild smooth heterogeneous hypoechoic plaque noted at the carotid bifurcations bilaterally. The peak systolic velocity in the proximal right internal carotid artery is 79 cm/sec. This corresponds to a 20 to 39% proximal right ICA stenosis. Normal systolic velocities are noted in the proximal right external carotid artery. There is antegrade flow in the right vertebral artery. The peak systolic velocity in the proximal left internal carotid artery is 59 cm/sec. This corresponds to a 20 to 39% proximal left ICA stenosis. Normal systolic velocities are noted in the proximal left external carotid artery. There is antegrade flow in the left vertebral artery. IMPRESSION: 1. Bilateral 20-39% proximal ICA stenoses. 2. Antegrade flow in both vertebral arteries.
--- NOTE | 2017-01-30 16:56 | CP.PCM.PN ---
<GEOVANNA FERNÁNDEZ - Last Filed: 01/30/17 18:56> Subjective - Date & Time of Evaluation Date of Evaluation: 01/30/17 Time of Evaluation: 10:00 - Subjective Subjective: Patient was seen and examined bedside. She states that she feels much better and that her weakness has resolved since drinking juice. The patient also states that she had 2 CVA's in the past that caused her to have poor vision and also that she has trouble ambulating due to tingling in both feet. the patient also states that she has been constipated and needs to bear down in order to have a BM. Also states that her last BM was 7 days ago. Denies chest pain, abdominal pain, headaches, fevers or chills. Objective - Vital Signs/Intake and Output Vital Signs (last 24 hours): Temp Pulse Resp BP Pulse Ox 98.7 F 70 20 117/60 94 L 01/30/17 16:00 01/30/17 16:00 01/30/17 16:00 01/30/17 16:00 01/30/17 16:00 Intake and Output: 01/30/17 01/30/17 06:59 18:59 Intake Total 150 780 Balance 150 780 - Medications Medications: Current Medications Amlodipine Besylate (Norvasc) 10 mg PO DAILY [facility] Last Admin: 01/30/17 11:08 Dose: 10 mg Aspirin (Ecotrin) 81 mg PO DAILY [facility] Last Admin: 01/30/17 11:10 Dose: 81 mg Atorvastatin Calcium (Lipitor) 40 mg PO DAILY [facility] Last Admin: 01/30/17 11:09 Dose: 40 mg Calcium Acetate (Phoslo) 667 mg PO WM [facility] Last Admin: 01/30/17 15:09 Dose: Not Given Carvedilol (Coreg) 12.5 mg PO DAILY [facility] Last Admin: 01/30/17 11:09 Dose: 12.5 mg Gabapentin (Neurontin) 300 mg PO TID [facility] PRN Reason: Protocol Last Admin: 01/30/17 15:00 Dose: 300 mg Hydralazine HCl (Apresoline) 50 mg PO BID [facility] Last Admin: 01/30/17 11:10 Dose: 50 mg Insulin Human Lispro (Humalog Low) 0 units SC ACHS [facility] PRN Reason: Protocol Last Admin: 01/30/17 12:35 Dose: Not Given Isosorbide Mononitrate (Imdur) 60 mg PO DAILY [facility] Last Admin: 01/30/17 11:09 Dose: 60 mg Meclizine HCl (Antivert) 25 mg PO Q6H PRN PRN Reason: Dizziness Ondansetron HCl (Zofran Inj) 4 mg IVP Q6H PRN PRN Reason: Nausea/Vomiting Pantoprazole Sodium (Protonix Inj) 40 mg IVP DAILY [facility] Last Admin: 01/30/17 11:11 Dose: 40 mg Vitamin B Complex/Vit C/Folic Acid (Nephro-Rupali) 1 tab PO DAILY [facility] Last Admin: 01/30/17 11:09 Dose: 1 tab - Labs Labs: 01/30/17 06:35 01/30/17 06:35 PT 12.0 Seconds (9.9-11.8) H 01/29/17 14:30 INR 1.11 (0.93-1.08) H 01/29/17 14:30 APTT 28.3 Seconds (23.7-30.8) 01/29/17 14:30 - Constitutional Appears: Well, No Acute Distress - Head Exam Head Exam: ATRAUMATIC, NORMOCEPHALIC - Eye Exam Eye Exam: EOMI, Normal appearance - ENT Exam ENT Exam: Mucous Membranes Moist, Normal Exam - Respiratory Exam Respiratory Exam: Clear to Ausculation Bilateral, NORMAL BREATHING PATTERN. absent: Accessory Muscle Use, Rales, Rhonchi, Wheezes, Respiratory Distress - Cardiovascular Exam Cardiovascular Exam: RRR. absent: Gallop, Rubs, Murmur - GI/Abdominal Exam GI & Abdominal Exam: Soft, Normal Bowel Sounds. absent: Distended, Tenderness - Neurological Exam Neurological Exam: Alert, Awake, Oriented x3 - Psychiatric Exam Psychiatric exam: Normal Affect, Normal Mood - Skin Skin Exam: Normal Color, Warm Assessment and Plan - Assessment and Plan (Free Text) Assessment: 56 yo [place] F PMHx CVA in 2013, ESRD on hemodialysis, DM, HTN, HLD presenting with fatigue, dizziness, and dyspnea after hemodialysis on Monday. Patient stated that symptoms typically worsen after dialysis and have been worsening for the last 3 weeks. Plan: 1. Dizziness likely 2/2 Hypoglycemia vs syncope - avoid hypoglycemic episodes - neuro consult, recs appreciated - zofran PRN, meclizine 25mg Q6 PRN, per neuro - PT eval 2. ESRD on HD (T, Th, S) - continue dialysis tomorrow 3. DM2 - maintain glucose 140-180 - hold Levemir - Educate patient about blood sugar control around time of dialysis -Neurontin 100mg TID for neuritis - Humalog - Nephro-rupali 4. HTN - norvasc 10mg PO daily - Coreg 12.5mg PO daily - Hydralazine 25mg BID 5. HLD - Lipitor 40mg PO daily 6. Hx of CVA - ASA and others as above PPX: PTX Patient was seen, discussed and evaluated with attending, Dr. Mabry, Geovanna Fernández, PGY1 <Rupert Mabry - Last Filed: 01/30/17 22:30> Objective - Vital Signs/Intake and Output Vital Signs (last 24 hours): Temp Pulse Resp BP Pulse Ox 98.7 F 70 20 117/60 94 L 01/30/17 16:00 01/30/17 17:12 01/30/17 16:00 01/30/17 17:12 01/30/17 16:00 Intake and Output: 01/30/17 01/31/17 18:59 06:59 Intake Total 780 250 Balance 780 250 - Medications Medications: Current Medications Amlodipine Besylate (Norvasc) 10 mg PO DAILY [facility] Last Admin: 01/30/17 11:08 Dose: 10 mg Aspirin (Ecotrin) 81 mg PO DAILY [facility] Last Admin: 01/30/17 11:10 Dose: 81 mg Atorvastatin Calcium (Lipitor) 40 mg PO DAILY [facility] Last Admin: 01/30/17 11:09 Dose: 40 mg Calcium Acetate (Phoslo) 667 mg PO WM [facility] Last Admin: 01/30/17 17:11 Dose: 667 mg Carvedilol (Coreg) 12.5 mg PO DAILY [facility] Last Admin: 01/30/17 11:09 Dose: 12.5 mg Gabapentin (Neurontin) 100 mg PO TID [facility] PRN Reason: Protocol Hydralazine HCl (Apresoline) 25 mg PO BID [facility] Insulin Human Lispro (Humalog Low) 0 units SC ACHS [facility] PRN Reason: Protocol Last Admin: 01/30/17 21:30 Dose: Not Given Isosorbide Mononitrate (Imdur) 60 mg PO DAILY [facility] Last Admin: 01/30/17 11:09 Dose: 60 mg Meclizine HCl (Antivert) 25 mg PO Q6H PRN PRN Reason: Dizziness Ondansetron HCl (Zofran Inj) 4 mg IVP Q6H PRN PRN Reason: Nausea/Vomiting Pantoprazole Sodium (Protonix Inj) 40 mg IVP DAILY [facility] Last Admin: 01/30/17 11:11 Dose: 40 mg Vitamin B Complex/Vit C/Folic Acid (Nephro-Rupali) 1 tab PO DAILY [facility] Last Admin: 01/30/17 11:09 Dose: 1 tab - Labs Labs: 01/30/17 06:35 01/30/17 06:35 PT 12.0 Seconds (9.9-11.8) H 01/29/17 14:30 INR 1.11 (0.93-1.08) H 01/29/17 14:30 APTT 28.3 Seconds (23.7-30.8) 01/29/17 14:30 Attending/Attestation - Attestation I have personally seen and examined this patient.: Yes I have fully participated in the care of the patient.: Yes I have reviewed all pertinent clinical information, including history, physical exam and plan: Yes Notes (Text): 01/30/17 22:27 56 year old female with past medical history of CVA, ESRD, diabetes and hypertension who presented with weakness and dizziness. She was found to be hypoglycemic on admission. Neurology and psychiatry evaluation were appreciated. PT evaluation is pending. She is on meclizine prn. Hemoglobin A1c is 6.5 and her levemir is on hold for now due to hypoglycemia yesterday. Carotid dopplers were reviewed. Continue with HD as per nephrology. Rupert Mabry MD Hospitalist.
--- NOTE | 2017-01-30 17:19 | CARD ---
APPROVED REPORT EKG Measurement Heart [id number] CT [id number] <Conclusion> Normal sinus rhythm Normal ECG
--- NOTE | 2017-01-30 18:01 | CP.PCM.PN ---
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[employer]), presented yesterday with complaint of dizziness and weakness that started with HD session day before presentation and persists; nephrology service being consulted for ESRD management; Patient has been complaining of dizziness and weakness during dialysis treatments for at least several weeks; patient is known for high weight gains in between HD sessions; very difficult to achieve ultrafiltration goals as BP drops and patient becomes symptomatic; Patient currently reporting still feeling the above symptoms despite last HD session being 2 days ago; on further questioning, dizziness is described as the ceiling spinning; says she was also having difficulty breathing this morning; Patient otherwise reports no urination over past week; denies any chest pains or palpitations; says she is too weak to stand; Objective - Vital Signs/Intake and Output Vital Signs (last 24 hours): Temp Pulse Resp BP Pulse Ox 98.7 F 70 20 117/60 94 L 01/30/17 16:00 01/30/17 17:12 01/30/17 16:00 01/30/17 17:12 01/30/17 16:00 Intake and Output: 01/30/17 01/30/17 06:59 18:59 Intake Total 150 780 Balance 150 780 - Medications Medications: Current Medications Amlodipine Besylate (Norvasc) 10 mg PO DAILY [facility] Last Admin: 01/30/17 11:08 Dose: 10 mg Aspirin (Ecotrin) 81 mg PO DAILY [facility] Last Admin: 01/30/17 11:10 Dose: 81 mg Atorvastatin Calcium (Lipitor) 40 mg PO DAILY [facility] Last Admin: 01/30/17 11:09 Dose: 40 mg Calcium Acetate (Phoslo) 667 mg PO WM [facility] Last Admin: 01/30/17 17:11 Dose: 667 mg Carvedilol (Coreg) 12.5 mg PO DAILY [facility] Last Admin: 01/30/17 11:09 Dose: 12.5 mg Gabapentin (Neurontin) 300 mg PO TID [facility] PRN Reason: Protocol Last Admin: 01/30/17 17:11 Dose: 300 mg Hydralazine HCl (Apresoline) 50 mg PO BID [facility] Last Admin: 01/30/17 17:12 Dose: 50 mg Insulin Human Lispro (Humalog Low) 0 units SC ACHS [facility] PRN Reason: Protocol Last Admin: 01/30/17 17:13 Dose: 1 units Isosorbide Mononitrate (Imdur) 60 mg PO DAILY [facility] Last Admin: 01/30/17 11:09 Dose: 60 mg Meclizine HCl (Antivert) 25 mg PO Q6H PRN PRN Reason: Dizziness Ondansetron HCl (Zofran Inj) 4 mg IVP Q6H PRN PRN Reason: Nausea/Vomiting Pantoprazole Sodium (Protonix Inj) 40 mg IVP DAILY [facility] Last Admin: 01/30/17 11:11 Dose: 40 mg Vitamin B Complex/Vit C/Folic Acid (Nephro-Raji) 1 tab PO DAILY [facility] Last Admin: 01/30/17 11:09 Dose: 1 tab - Labs Labs: 01/30/17 06:35 01/30/17 06:35 PT 12.0 Seconds (9.9-11.8) H 01/29/17 14:30 INR 1.11 (0.93-1.08) H 01/29/17 14:30 APTT 28.3 Seconds (23.7-30.8) 01/29/17 14:30 - Constitutional Appears: No Acute Distress - Head Exam Head Exam: NORMAL INSPECTION - Eye Exam Eye Exam: absent: Scleral icterus - ENT Exam ENT Exam: Mucous Membranes Moist - Neck Exam Neck Exam: Normal Inspection. absent: Lymphadenopathy - Respiratory Exam Respiratory Exam: Clear to Ausculation Bilateral. absent: Rales, Rhonchi, Wheezes, Respiratory Distress - Cardiovascular Exam Cardiovascular Exam: +S1, +S2. absent: REGULAR RHYTHM - GI/Abdominal Exam GI & Abdominal Exam: Soft. absent: Distended, Tenderness - Extremities Exam Additional comments: No leg edema; - Neurological Exam Neurological Exam: Alert, Awake - Psychiatric Exam Psychiatric exam: Normal Affect - Skin Skin Exam: Normal Color, Warm. absent: Cyanosis Assessment and Plan (1) Hypertensive CKD, ESRD on dialysis Status: Acute (2) Anemia Status: Acute (3) Chronic kidney disease-mineral and bone disorder Status: Acute (4) End stage renal disease on dialysis Status: Acute (5) Vertigo Status: Acute
[2017-01-30] MEDS ORDERED: Insulin Detemir 100 units/ml Vial (Levemir) SC SCH (22:00)
[2017-01-31 06:56] LABS: HEMOGLOBIN 9.8 gm/dL (12.0-16.0); MEAN CELL VOLUME 94.4 fL (80.0-105.0); MEAN CORPUSCULAR HEMOGLOBIN 30.4 pg (25.0-35.0); MEAN CORPUSCULAR HGB CONC 32.2 g/dl (31.0-37.0); MEAN PLATELET VOLUME 9.9 fl (7.0-11.0); RBC 3.22 10^6/uL (3.5-6.1); RED CELL DISTRIBUTION WIDTH 16.3 % (11.5-14.5); WHITE BLOOD COUNT 9.1 10^3/ul (4.5-11.0)
[2017-01-31 07:38] LABS: ALB/GLOB RATIO 1.2 (1.1-1.8); ALBUMIN 3.6 g/dL (3.0-4.8); CALCIUM 8.7 mg/dL (8.4-10.5)
[2017-01-31 08:23] LABS: MAGNESIUM 2.5 mg/dL (1.7-2.2)
[2017-01-31] MEDS: Insulin Lispro (humaLOG) LOW Coverage SC SCH ×2 (09:21→15:37)
[2017-01-31] MEDS ORDERED: POLYETHYLENE GLYCOL 3350 17 GM/Dose PACKET PO ONE (14:00)
[2017-01-31] MEDS: Multivitamin Vitamin B Complex (Nephro-Vite) Tab PO SCH (15:36)
[2017-01-31 15:44] VITALS: PULSE 75
[2017-01-31 16:50] VITALS: BP 147/67; TEMP 97.7; O2SAT 99
--- NOTE | 2017-01-31 23:13 | CP.PCM.DIS ---
<GEOVANNA LIRA - Last Filed: 01/31/17 22:34> Provider - Provider Date of Admission: 01/29/17 15:55 Attending physician: Rupert Mabry MD Primary care physician: Jose Benavidez MD Time Spent in preparation of Discharge (in minutes): 45 Hospital Course - Lab Results Lab Results: Most Recent Lab Values WBC 9.1 10^3/ul (4.5-11.0) 01/31/17 06:30 RBC 3.22 10^6/uL (3.5-6.1) L 01/31/17 06:30 Hgb 9.8 gm/dL (12.0-16.0) L 01/31/17 06:30 Hct 30.4 % (36.0-48.0) L 01/31/17 06:30 MCV 94.4 fL (80.0-105.0) 01/31/17 06:30 MCH 30.4 pg (25.0-35.0) 01/31/17 06:30 MCHC 32.2 g/dl (31.0-37.0) 01/31/17 06:30 RDW 16.3 % (11.5-14.5) H 01/31/17 06:30 Plt Count 330 10^3/uL (120.0-450.0) 01/31/17 06:30 MPV 9.9 fl (7.0-11.0) 01/31/17 06:30 Gran % 60.8 % (50.0-68.0) 01/29/17 14:30 Lymph % (Auto) 32.8 % (22.0-35.0) 01/29/17 14:30 [place] % (Auto) 6.1 % (1.0-6.0) H 01/29/17 14:30 Eos % (Auto) 0.0 % (1.5-5.0) L 01/29/17 14:30 Baso % (Auto) 0.3 % (0.0-3.0) 01/29/17 14:30 Gran # 6.23 (1.4-6.5) 01/29/17 14:30 Lymph # 3.4 (1.2-3.4) 01/29/17 14:30 [place] # 0.6 (0.1-0.6) 01/29/17 14:30 Eos # 0.0 (0.0-0.7) 01/29/17 14:30 Baso # 0.03 K/mm3 (0.0-2.0) 01/29/17 14:30 Retic Count 2.54 % (0.5-1.5) H 01/30/17 06:35 PT 12.0 Seconds (9.9-11.8) H 01/29/17 14:30 INR 1.11 (0.93-1.08) H 01/29/17 14:30 APTT 28.3 Seconds (23.7-30.8) 01/29/17 14:30 Sodium 134 mmol/L (132-148) 01/31/17 06:30 Potassium 4.6 mmol/L (3.6-5.0) 01/31/17 06:30 Chloride 95 mmol/L (98-107) L 01/31/17 06:30 Carbon Dioxide 23 mmol/L (21-33) 01/31/17 06:30 Anion Gap 21 (10-20) H 01/31/17 06:30 BUN 82 mg/dL (7-21) H 01/31/17 06:30 Creatinine 8.6 mg/dL (0.5-1.4) H* 01/31/17 06:30 Est GFR ( Amer) 6 01/31/17 06:30 Est GFR (Non-Af Amer) 5 01/31/17 06:30 POC Glucose (mg/dL) 275 mg/dL (65-110) H 01/31/17 21:13 Random Glucose 137 mg/dL (70-110) H 01/31/17 06:30 Hemoglobin A1c 6.5 % (4.2-6.5) 01/30/17 06:35 Calcium 8.7 mg/dL (8.4-10.5) 01/31/17 06:30 Phosphorus 7.3 mg/dL (2.5-4.5) H 01/31/17 08:00 Magnesium 2.5 mg/dL (1.7-2.2) H 01/31/17 08:00 Iron 57 ug/dL (45-180) 01/30/17 05:00 TIBC 246 ug/dL (265-497) L 01/30/17 05:00 % Saturation 23 % (20-55) 01/30/17 05:00 Ferritin 299.0 ng/mL 01/30/17 06:35 Total Bilirubin 0.6 mg/dL (0.2-1.3) 01/31/17 06:30 AST 35 U/L (15-39) 01/31/17 06:30 ALT 24 U/L (7-56) 01/31/17 06:30 Alkaline Phosphatase 106 U/L (38-133) 01/31/17 06:30 Total Creatine Kinase 31 U/L (35-230) L 01/29/17 15:10 Troponin I < 0.01 ng/mL 01/29/17 15:10 NT-Pro-B Natriuret Pep 1120 pg/mL (0-450) H 01/29/17 15:10 Total Protein 6.6 g/dL (5.8-8.3) 01/31/17 06:30 Albumin 3.6 g/dL (3.0-4.8) 01/31/17 06:30 Globulin 3.0 gm/dL 01/31/17 06:30 Albumin/Globulin Ratio 1.2 (1.1-1.8) 01/31/17 06:30 Triglycerides 86 mg/dL (35-160) 01/30/17 06:35 Cholesterol 141 mg/dL (130-200) 01/30/17 06:35 LDL Cholesterol Direct 70 mg/dL (0-129) 01/30/17 06:35 HDL Cholesterol 39 mg/dL (29-60) 01/30/17 06:35 Vitamin B12 813 pg/mL (239-931) 01/30/17 06:35 Folate > 20.0 ng/mL 01/30/17 06:35 TSH 3rd Generation 1.42 mIU/mL (0.46-4.68) 01/30/17 06:35 - Hospital Course Hospital Course: Ms. Xavier is a 56 yo mongolian speaking only F with PMHx of ESRD on HD, anemia , IDDM a/w peripheral neuropathy, weakened vision and gastroparesis, HLD, CVA ( no residual focal deficits) and HTN presents with cc of fatigue, dizziness, and minor SOB after receiving HD the day prior. Pt states that she started HD about 7 months ago and gets it 3 times a week (T, Th, S) through her Left upper arm AV fistula. She states that they normal pull 3-4 L of fluid off of her during HD. She usually feels fatigued after each HD session, however her symptoms have worsened steadily over the past 3 weeks, the worst being yesterday. Pt states that sitting and ambulation makes her dizziness worse and lying supine improves her symptoms. Pt states that she has received 2 blood transfusions in the past which improved her fatigue. Pt admitted to nausea with vomiting x3 since yesterday, and some LE swelling pre-HD which resolved after HD. Pt has been non- ambulatory for the last 2 years due to difficulty seeing and the neuropathy in her legs, which have caused her to have multiple falls. In ED, pt was given meclizine and xanax in the ED, but her symptoms did not resolve. Glucose was found to be 39, the patient was given juice and stated that she felt better. EKG showed NS. CXR showed poor inspiration , low lung volumes, crowded bronchovascular markings, mild bibasilar atelectasis (L>R). CT head showed no acute abnormality. Carotid doppler showed b/l 20-39% ICA stenosis but was otherwise not significant. The patient was transferred to the medicine floors for further evaluation and management. On the floors, Nephro, Neuro and Psych were consulted. The patient's diabetes medications were held to avoid further hypoglycemic events; patient's FS ranged from 91-275 having only received Lispro 1u on 01/30 and 2u on 01/31. Other labs showed H/H, iron/ferritin/%sat WNL, TIBC elevated, TSH wnl. The patient received HD today, and had juice during it. The patient denied any discomfort and was feeling well, despite of weakness which is her baseline. BP after dialysis was within her normal range. The patient was complaining of constipation for 8 days, and a Miralax was given to her, and recommended that she continue taking it OTC after discharge for relief. The patient was prepped for discharged. It was explained in depth to the patient and her son that the episodes of dizziness that she has are due to poor control of her blood sugar levels. According to the patient and the son, the weakness is her baseline and due to her poor eyesight and neuropathy, her ambulation is difficult but patient has good support at home as she is staying with her daughter and will be moving in with the son soon. The son states that he is comfortable controlling her sugar levels because he has done it for so long. The team advices the patient and the son that since the patient's A1c is 6.5 and WNL, we recommend lifestyle modifications rather than poor insulin dosage which carries the risk of hypoglycemic events (which have been recurrent with the patient due to her poor eyesight and poor education about insulin use of the pt and her daughter), however the son states that he feels confident managing her glucose levels; the team advises son to get more frequent fingerstick readings to make sure she doesn't get hypoglycemic. The patient has good support at home (lives with family) and will not need further assistance once discharged with her ADL's. The patient is being discharged on Meclizine for her drowsiness and strongly encouraged to followup with PMD for further diabetes management, and medication adjustments. The patient should adopt lifestyle modifications such as low-fat and low-salt diet and mild exercise, if possible. The patient should be cautious when receiving dialysis to make sure to have juice with her to avoid feeling weak and dizzy around time of dialysis. - Date & Time of H&P Date of H&P: 01/29/17 Time of H&P: 20:50 Discharge Exam - Head Exam Head Exam: ATRAUMATIC, NORMOCEPHALIC - Eye Exam Eye Exam: EOMI, Normal appearance, PERRL. absent: Nystagmus, Periorbital swelling, Periorbital tenderness, Scleral icterus Pupil Exam: NORMAL ACCOMODATION Additional comments: poor eyesight, and pt cannot discern faces - ENT Exam ENT Exam: Mucous Membranes Moist, Normal Exam - Respiratory Exam Respiratory Exam: Clear to PA & Lateral, NORMAL BREATHING PATTERN, UNREMARKABLE. absent: Accessory Muscle Use, Chest Wall Tenderness, Rales, Rhonchi, Wheezes, Respiratory Distress, Stridor - Cardiovascular Exam Cardiovascular Exam: RRR, +S1, +S2. absent: Gallop, JVD, Rubs, Systolic Murmur - GI/Abdominal Exam GI & Abdominal Exam: Hypoactive Bowel Sounds, Soft. absent: Distended, Guarding , Organomegaly, Rebound, Rigid, Tenderness Additional comments: obese female - Extremities Exam Additional comments: LUE AV fistula in place - Neurological Exam Neurological exam: Abnormal Gait (pt has guarded gait due to peripheral neuropathy and poor eyesight, but had good muscle mass and 5/5 strength x4 ext) , Alert, Oriented x3 - Psychiatric Exam Psychiatric exam: Anxious (anxious about going home and having this recur ), Normal Affect - Skin Skin Exam: Normal Color, Warm Discharge Plan - Discharge Medications Prescriptions: hydrALAZINE [Apresoline] 50 mg PO BID #14 tab Meclizine [Meclizine*] 25 mg PO Q6H PRN #30 tab PRN Reason: Dizziness - Follow Up Plan Condition: FAIR Disposition: HOME/ ROUTINE Instructions: Dialysis Diet (DC), Diabetes Mellitus Type 2 in Adults (DC), Dizziness (GEN), End Stage Kidney Disease (DC) Additional Instructions: Ms. Xavier, You are being discharged with a diagnosis of hypoglycemia (low blood sugar). This is probably due to poor control of your blood sugar levels. Your A1C level (a marker of how well controlled your diabetes is) is 6.5 which is around where we want it to be. Therefore we are asking you to change your diet and try to exercise to maintain your level at where it is and not have it get worse. We would like you to not use any diabetic medications, which increase your risk of hypoglycemic events (weakness, dizziness and altered mental state) and the risk of hypoglycemia is too great as she has had similar events before. Here are our recommendations: 1. Please followup with your primary care physician within ONE WEEK for management of your diabetes, HLD, anemia, HTN and neuropathies 2. Please measure your fingersticks daily and monitor changes with meals. 3. Please consider lifestyle modifications that would keep your diabetes managed better than addition of diabetes medications 4. Meds: Meclizine for your dizziness If you feel any change of mental state, headaches, shortness of breath, chest pain fevers or have any trouble urinating, please go to the ER. Thank you, Geovanna Lira PGY1 Dr. Mabry, Attending Physician Referrals: Jose Benavidez MD [Primary Care Provider] - <Rupert Mabry - Last Filed: 02/01/17 14:06> Provider - Provider Date of Admission: 01/29/17 15:55 Attending physician: Rupert Mabry MD Primary care physician: Jose Benavidez MD Hospital Course - Lab Results Lab Results: Most Recent Lab Values WBC 9.1 10^3/ul (4.5-11.0) 01/31/17 06:30 RBC 3.22 10^6/uL (3.5-6.1) L 01/31/17 06:30 Hgb 9.8 gm/dL (12.0-16.0) L 01/31/17 06:30 Hct 30.4 % (36.0-48.0) L 01/31/17 06:30 MCV 94.4 fL (80.0-105.0) 01/31/17 06:30 MCH 30.4 pg (25.0-35.0) 01/31/17 06:30 MCHC 32.2 g/dl (31.0-37.0) 01/31/17 06:30 RDW 16.3 % (11.5-14.5) H 01/31/17 06:30 Plt Count 330 10^3/uL (120.0-450.0) 01/31/17 06:30 MPV 9.9 fl (7.0-11.0) 01/31/17 06:30 Gran % 60.8 % (50.0-68.0) 01/29/17 14:30 Lymph % (Auto) 32.8 % (22.0-35.0) 01/29/17 14:30 [place] % (Auto) 6.1 % (1.0-6.0) H 01/29/17 14:30 Eos % (Auto) 0.0 % (1.5-5.0) L 01/29/17 14:30 Baso % (Auto) 0.3 % (0.0-3.0) 01/29/17 14:30 Gran # 6.23 (1.4-6.5) 01/29/17 14:30 Lymph # 3.4 (1.2-3.4) 01/29/17 14:30 [place] # 0.6 (0.1-0.6) 01/29/17 14:30 Eos # 0.0 (0.0-0.7) 01/29/17 14:30 Baso # 0.03 K/mm3 (0.0-2.0) 01/29/17 14:30 Retic Count 2.54 % (0.5-1.5) H 01/30/17 06:35 PT 12.0 Seconds (9.9-11.8) H 01/29/17 14:30 INR 1.11 (0.93-1.08) H 01/29/17 14:30 APTT 28.3 Seconds (23.7-30.8) 01/29/17 14:30 Sodium 134 mmol/L (132-148) 01/31/17 06:30 Potassium 4.6 mmol/L (3.6-5.0) 01/31/17 06:30 Chloride 95 mmol/L (98-107) L 01/31/17 06:30 Carbon Dioxide 23 mmol/L (21-33) 01/31/17 06:30 Anion Gap 21 (10-20) H 01/31/17 06:30 BUN 82 mg/dL (7-21) H 01/31/17 06:30 Creatinine 8.6 mg/dL (0.5-1.4) H* 01/31/17 06:30 Est GFR ( Amer) 6 01/31/17 06:30 Est GFR (Non-Af Amer) 5 01/31/17 06:30 POC Glucose (mg/dL) 275 mg/dL (65-110) H 01/31/17 21:13 Random Glucose 137 mg/dL (70-110) H 01/31/17 06:30 Hemoglobin A1c 6.5 % (4.2-6.5) 01/30/17 06:35 Calcium 8.7 mg/dL (8.4-10.5) 01/31/17 06:30 Phosphorus 7.3 mg/dL (2.5-4.5) H 01/31/17 08:00 Magnesium 2.5 mg/dL (1.7-2.2) H 01/31/17 08:00 Iron 57 ug/dL (45-180) 01/30/17 05:00 TIBC 246 ug/dL (265-497) L 01/30/17 05:00 % Saturation 23 % (20-55) 01/30/17 05:00 Ferritin 299.0 ng/mL 01/30/17 06:35 Total Bilirubin 0.6 mg/dL (0.2-1.3) 01/31/17 06:30 AST 35 U/L (15-39) 01/31/17 06:30 ALT 24 U/L (7-56) 01/31/17 06:30 Alkaline Phosphatase 106 U/L (38-133) 01/31/17 06:30 Total Creatine Kinase 31 U/L (35-230) L 01/29/17 15:10 Troponin I < 0.01 ng/mL 01/29/17 15:10 NT-Pro-B Natriuret Pep 1120 pg/mL (0-450) H 01/29/17 15:10 Total Protein 6.6 g/dL (5.8-8.3) 01/31/17 06:30 Albumin 3.6 g/dL (3.0-4.8) 01/31/17 06:30 Globulin 3.0 gm/dL 01/31/17 06:30 Albumin/Globulin Ratio 1.2 (1.1-1.8) 01/31/17 06:30 Triglycerides 86 mg/dL (35-160) 01/30/17 06:35 Cholesterol 141 mg/dL (130-200) 01/30/17 06:35 LDL Cholesterol Direct 70 mg/dL (0-129) 01/30/17 06:35 HDL Cholesterol 39 mg/dL (29-60) 01/30/17 06:35 Vitamin B12 813 pg/mL (239-931) 01/30/17 06:35 Folate > 20.0 ng/mL 01/30/17 06:35 TSH 3rd Generation 1.42 mIU/mL (0.46-4.68) 01/30/17 06:35 Attending/Attestation - Attestation I have personally seen and examined this patient.: Yes I have fully participated in the care of the patient.: Yes I have reviewed all pertinent clinical information, including history, physical exam and plan: Yes Notes (Text): 01/31/17 56 year old female with past medical history of CVA, ESRD, diabetes and hypertension who presented with weakness and dizziness. She was found to be hypoglycemic on admission. Her levemir was held during hospital stay. Her hemoglobin A1c is 6.5 and we have recommended to hold levemir/lantus at home to avoid hypoglycemia. Monitor fingersticks closely at home and repeat A1c in 3 months with pmd. She was seen by neurology and psychiatry evaluation. Her symptoms improved with meclizine. She is at her baseline. She will be discharged home with support of family. Follow up with pmd and recycle coordinator. Rupert Mabry MD Hospitalist.
--- NOTE | 2017-02-01 06:29 | CP.PCM.PN ---
Subjective - Date & Time of Evaluation Date of Evaluation: 01/31/17 Time of Evaluation: 11:00 - Subjective Subjective: Patient reports dizziness improved; Objective - Vital Signs/Intake and Output Vital Signs (last 24 hours): Temp Pulse Resp BP Pulse Ox 97.7 F 75 20 147/67 99 01/31/17 16:49 01/31/17 16:49 01/31/17 16:49 01/31/17 16:49 01/31/17 16:49 - Labs Labs: 01/31/17 06:30 01/31/17 06:30 PT 12.0 Seconds (9.9-11.8) H 01/29/17 14:30 INR 1.11 (0.93-1.08) H 01/29/17 14:30 APTT 28.3 Seconds (23.7-30.8) 01/29/17 14:30 - Constitutional Appears: Non-toxic, No Acute Distress - Head Exam Head Exam: NORMAL INSPECTION - Eye Exam Eye Exam: absent: Scleral icterus - ENT Exam ENT Exam: Mucous Membranes Moist - Respiratory Exam Respiratory Exam: Clear to Ausculation Bilateral, NORMAL BREATHING PATTERN. absent: Respiratory Distress - Cardiovascular Exam Cardiovascular Exam: REGULAR RHYTHM, +S1, +S2 - GI/Abdominal Exam GI & Abdominal Exam: Soft. absent: Distended, Tenderness - Extremities Exam Extremities Exam: Normal Capillary Refill Additional comments: no leg edema; - Neurological Exam Neurological Exam: Alert, Awake - Psychiatric Exam Psychiatric exam: Normal Affect, Normal Mood - Skin Skin Exam: Normal Color, Warm. absent: Cyanosis Assessment and Plan (1) End stage renal disease on dialysis Assessment & Plan: Stable electrolyte and volume status; HD today per routine; will not UF more than 2.5L net and assess patient's "dizziness" thereafter; Status: Chronic (2) Hypertensive CKD, ESRD on dialysis Assessment & Plan: Hydralazine decreased to 25 mg bid to avoid hypotension on HD; monitor; continuing rest of BP meds; Status: Chronic (3) Anemia Assessment & Plan: Due to ESRD; giving aranesp per protocol; Status: Chronic (4) Chronic kidney disease-mineral and bone disorder Assessment & Plan: Hyperphosphatemia; will re-check phos level as outpatient; Status: Chronic (5) Vertigo Assessment & Plan: Etiology still unclear but may be concommitant with lightheadedness due to high UF on HD (as she gains lot of weight between sessions); gabapentin dose likely too high for ESRD patient and may be contributory; decreasing to 100 mg tid; Status: Acute
== END 2017-01-31 18:00 | disposition home or self-care (01) ==
LOC: ED 13:19 → EROBSV 15:55 → ERH 18:36 → 5RNO 20:08
PROVIDERS: ADMIT Internal Medicine; ATTEND Internal Medicine
DX: E11.649 Type 2 diabetes mellitus with hypoglycemia without coma (principal); Z79.4 Long term (current) use of insulin; E11.22 Type 2 diabetes mellitus with diabetic chronic kidney disease; N18.6 End stage renal disease; Z99.2 Dependence on renal dialysis
CPT/HCPCS: 36415; 70450; 71010; 80053; 80061; 82550; 82607; 82728; 82746; 82948; 83036; 83540; 83550; 83735; 83880; 84100; 84443; 84484; 85025; 85027; 85044; 85610; 85730; 93005; 93880; 99285; C9113; G0378; J1644

== ENCOUNTER 2017-02-07 15:33 | Observation (INO) | payer OTHER, MEDICAID ==
--- NOTE | 2017-02-07 16:40 | ED PDOC ---
Arrival/HPI - General Chief Complaint: Dizziness/Lightheaded Time Seen by Provider: 02/07/17 15:42 Historian: Patient - History of Present Illness Narrative History of Present Illness (Text): 02/07/17 16:10 Lou Xavier is a 56 year old female, whose past medical history includes ESRD, dialysis (TWTh), Anemia, diabetes, CVA, hyperlipidemia, hypertension and chronic dizziness, who presents to the emergency department complaining of falling from dizziness associated with nausea today. According to patient's son , patient finished dialysis today and upon going home, felt extremely unsteady and fell. Patient's son denies any head injury. He also notes that patient gets anxious when she feels dizzy. Patient denies any other complaint. PMD: Dr. Benavidez Time/Duration: 1-3 hours Symptom Onset: Gradual Symptom Course: Unchanged Activities at Onset: Light Context: Home Past Medical History - Provider Review Nursing Documentation Reviewed: Yes - Infectious Disease Hx of Infectious Diseases: None - Reproductive Menopause: Yes - Cardiac Hx Pacemaker: No - Pulmonary Hx Respiratory Disorders: Yes Hx Asthma: Yes - Neurological Hx Paralysis: No - HEENT Hx HEENT Disorder: No - Renal Hx Dialysis: Yes Date of Last Dialysis Treatment: 08/27/16 - Endocrine/Metabolic Hx Diabetes Mellitus Type 2: Yes - Hematological/Oncological Hx Blood Transfusions: Yes Hx Blood Transfusion Reaction: No - Integumentary Hx Dermatological Disorder: No - Musculoskeletal/Rheumatological Hx Musculoskeletal Disorders: Yes - Gastrointestinal Hx Gastrointestinal Disorders: No - Genitourinary/Gynecological Other/Comment: ureremic encephalopathy - Psychiatric Hx Emotional Abuse: No Hx Physical Abuse: No Hx Substance Use: No - Surgical History Other/Comment: left upper arm av fistula - Anesthesia Hx Anesthesia: Yes Hx Anesthesia Reactions: No Hx Malignant Hyperthermia: No - Suicidal Assessment Feels Threatened In Home Enviroment: No Family/Social History - Physician Review Nursing Documentation Reviewed: Yes Family/Social History: No Known Family HX Smoking Status: Never Smoked Hx Alcohol Use: No Hx Substance Use: No Allergies/Home Meds Allergies/Adverse Reactions: Allergies No Known Allergies Allergy (Verified 01/29/17 13:33) Review of Systems - Physician Review All systems were reviewed & negative as marked: Yes - Review of Systems Constitutional: absent: Fevers, Night Sweats Eyes: absent: Vision Changes ENT: absent: Hearing Changes Respiratory: absent: SOB Cardiovascular: absent: Chest Pain Gastrointestinal: Nausea. absent: Abdominal Pain Genitourinary Female: absent: Dysuria Musculoskeletal: absent: Arthralgias Skin: absent: Rash, Other Neurological: Dizziness Endocrine: absent: Diaphoresis Hemo/Lymphatic: absent: Adenopathy Psychiatric: Anxiety. absent: Depression Physical Exam Vital Signs Reviewed: Yes Vital Signs Temp Pulse Resp BP Pulse Ox 02/07/17 17:51 69 18 128/79 98 02/07/17 16:45 65 18 131/89 98 02/07/17 15:45 98.2 F 63 18 133/96 H 98 Temperature: Afebrile Blood Pressure: Hypertensive Pulse: Regular Respiratory Rate: Normal Appearance: Positive for: Other (Anxious) Mental Status: Positive for: Alert and Oriented X 3 - Systems Exam Head: Present: Atraumatic, Normocephalic Pupils: Present: PERRL Conjunctiva: Present: Normal Mouth: Present: Moist Mucous Membranes Pharnyx: Present: Normal. No: ERYTHEMA, EXUDATE Neck: Present: Normal Range of Motion Respiratory/Chest: Present: Clear to Auscultation, Good Air Exchange. No: Respiratory Distress, Accessory Muscle Use Cardiovascular: Present: Regular Rate and Rhythm, Normal S1, S2. No: Murmurs Abdomen: Present: Normal Bowel Sounds. No: Tenderness, Distention, Peritoneal Signs Back: Present: Normal Inspection Upper Extremity: Present: Normal Inspection. No: Cyanosis, Edema Lower Extremity: Present: Normal Inspection. No: Edema Neurological: Present: GCS=15, CN II-XII Intact, Speech Normal Skin: Present: Warm, Dry, Normal Color. No: Rashes Psychiatric: Present: Alert, Oriented x 3, Normal Insight, Normal Concentration Medical Decision Making ED Course and Treatment: 02/07/17 16:10 Impression: 56 year old female complaining of falling from dizziness associated with nausea today. Plan: -- EKG -- Chest X-ray -- Head CT w/o contrast -- Labs -- Valium and Antivert -- Reassess and disposition Prior Visits: Notes and results from previous visits were reviewed. Patient last seen in the ED on 01/29/17 for shortness of breath after dialysis that began the day before arrival. Patient was admitted to hospitalist care. Progress Notes: 02/07/17 20:31 Patient's symptoms of dizziness appear to be chronic. However given the persistence of the symptoms and now the fall risk, she may need potential placement. However, spoke with social work, who said they will have to look further into the patient's potential medicaid status - will observe further for the dizziness and obtain social work eval. 02/07/17 20:35 Case was discussed with Dr. Ureña for placement on the hospitalist service. - Lab Interpretations Lab Results: 02/07/17 18:12 02/07/17 18:12 Lab Results 02/07/17 18:12: Sodium 137, Potassium 3.6, Chloride 93 L, Carbon Dioxide 30, Anion Gap 18, BUN 29 H, Creatinine 4.4 H, Est GFR ( Amer) 13, Est GFR ( Non-Af Amer) 10, Random Glucose 254 H, Calcium 9.4, Magnesium 2.2, Total Bilirubin 0.5, AST 30, ALT 21, Alkaline Phosphatase 130, Lactate Dehydrogenase 444, Total Creatine Kinase 33 L, Troponin I < 0.01, Total Protein 8.0, Albumin 4.3, Globulin 3.7, Albumin/Globulin Ratio 1.2 02/07/17 18:12: PT 11.1, INR 1.03, APTT 26.9 02/07/17 18:12: WBC 11.8 H D, RBC 3.72, Hgb 11.5 L, Hct 34.2 L, MCV 91.9, MCH 30.9, MCHC 33.6, RDW 14.9 H, Plt Count 359, MPV 9.8, Gran % 77.5 H, Lymph % ( Auto) 17.7 L, [place] % (Auto) 4.6, Eos % (Auto) 0.0 L, Baso % (Auto) 0.2, Gran # 9.11 H, Lymph # 2.1, [place] # 0.5, Eos # 0.0, Baso # 0.02 I have reviewed the lab results: Yes - RAD Interpretation Radiology Orders: 02/07/17 16:38 CHEST PORTABLE [RAD] Stat 02/07/17 16:39 Brain [HEAD W/O CONTRAST] [CT] Stat - EKG Interpretation EKG Interpretation (Text): 02/07/17 20:34 NSR @ 67; no ST/T changes; QTc is 498; other intervals normal and normal axis. Interpreted by ED Physician: Yes Type: 12 lead EKG - Medication Orders Current Medication Orders: Discontinued Medications Diazepam (Valium) 5 mg PO ONCE ONE Stop: 02/07/17 16:40 Last Admin: 02/07/17 17:10 Dose: 5 mg Meclizine HCl (Antivert) 12.5 mg PO STAT STA Stop: 02/07/17 16:40 Last Admin: 02/07/17 17:10 Dose: 12.5 mg - Scribe Statement The provider has reviewed the documentation as recorded by the Shannon Peralta Provider Scribe Attestation: All medical record entries made by the Shannon were at my direction and personally dictated by me. I have reviewed the chart and agree that the record accurately reflects my personal performance of the history, physical exam, medical decision making, and the department course for this patient. I have also personally directed, reviewed, and agree with the discharge instructions and disposition. Disposition/Present on Arrival - Present on Arrival Any Indicators Present on Arrival: Yes History of DVT/PE: No History of Uncontrolled Diabetes: Yes Urinary Catheter: No History of Decub. Ulcer: No History Surgical Site Infection Following: None - Disposition Have Diagnosis and Disposition been Completed?: Yes Diagnosis: Dizziness Disposition: HOSPITALIZED Disposition Time: 19:30 Patient Plan: Observation Patient Problems: Current Active Problems Problem Status Onset Dizziness Acute Condition: FAIR Referrals: Ryder Benavidez [Primary Care Provider] - Follow up with primary
--- NOTE | 2017-02-07 18:36 | CARD ---
APPROVED REPORT EKG Measurement Heart [id number] <Conclusion> Normal sinus rhythm Prolonged QT Abnormal ECG
[2017-02-07 18:40] LABS: BASO # 0.02 K/mm3 (0.0-2.0); BASO % 0.2 % (0.0-3.0); GRAN # 9.11 (1.4-6.5); GRAN % 77.5 % (50.0-68.0); HEMOGLOBIN 11.5 gm/dL (12.0-16.0); LYMPH # 2.1 (1.2-3.4); LYMPH % 17.7 % (22.0-35.0); MEAN CELL VOLUME 91.9 fL (80.0-105.0); MEAN CORPUSCULAR HEMOGLOBIN 30.9 pg (25.0-35.0); MEAN CORPUSCULAR HGB CONC 33.6 g/dl (31.0-37.0); MEAN PLATELET VOLUME 9.8 fl (7.0-11.0); MONO # 0.5 (0.1-0.6); MONO % 4.6 % (1.0-6.0); PLATELET COUNT 359 10^3/uL (120.0-450.0); RBC 3.72 10^6/uL (3.5-6.1); RED CELL DISTRIBUTION WIDTH 14.9 % (11.5-14.5); WHITE BLOOD COUNT 11.8 10^3/ul (4.5-11.0)
[2017-02-07 18:48] LABS: ALB/GLOB RATIO 1.2 (1.1-1.8); ALBUMIN 4.3 g/dL (3.0-4.8); ALT/SGPT 21 U/L (7-56); AST/SGOT 30 U/L (15-39); BLOOD UREA NITROGEN 29 mg/dL (7-21); CALCIUM 9.4 mg/dL (8.4-10.5); GFR AFRICAN-AMERICAN 13; GFR NON-AFRICAN AMERICAN 10; MAGNESIUM 2.2 mg/dL (1.7-2.2)
[2017-02-07 18:49] LABS: INR 1.03 (0.93-1.08); PARTIAL THROMBOPLASTIN TIME 26.9 Seconds (23.7-30.8); PROTHROMBIN TIME 11.1 Seconds (9.9-11.8)
[2017-02-07 18:58] LABS: TROPONIN I < 0.01 ng/mL
--- NOTE | 2017-02-07 20:44 | CP.PCM.HP ---
<MK EAST - Last Filed: 02/08/17 00:06> History of Present Illness - History of Present Illness History of Present Illness: Pt is a 56 yo lithuanian speaking only F with PMHx of ESRD, anemia, IDDM, HLD, and HTN presents with cc of fatigue and dizziness after HD today. Today, after dialysis was getting into a car at home, felt legs were weak and fell to the ground. No LOC, no head trauma, and was able recall all events. Fall was witnessed by family members not at bedside during exam. Pt states that she started HD about 7 months ago and gets it 3 times a week (T, Th, S) through her Left upper arm AV fistula. She states that they normal pull 3-4 L of fluid off of her during HD. She usually feels fatigued after each HD session, however her symptoms has worsened steadily over the past few weeks. Pt was admitted to [facility] last week for the same reason. Pt was subsequently discharged hemodynamically stable, educated on the cause of her dizziness likely due to HD and her fluctuating glucose. Pt states that sitting and ambulation makes her dizziness worse and lying supine improves her symptoms. Pt has been non-ambulatory for the last 2 years due to generalized and progressive weakness. Pt c/o nausea, but denied vomiting, constipation, diarrhea, new parasthesias in UE/LE, CP, SOB , room spinning, acute changes in vision, or focal weakness. Admits to numbness in both feet, but this is long standing. PMHx: ESRD on HD (T, Th, S), Anemia, IDDM, HLD, diabetic neuropathy, HTN, CVA ( 2013) Surg: LUE AV fistula FHx: Non-contributory SH: Denied tobacco, EtOH, or illicit drug use All: NKDA Medications: Reviewed and as per chart Present on Admission - Present on Admission Any Indicators Present on Admission: No Review of Systems - Review of Systems All systems: reviewed and no additional remarkable complaints except (12 point ROS reviewed and negative other than what is stated in HPI) Past Patient History - Infectious Disease Hx of Infectious Diseases: None - Past Social History Smoking Status: Never Smoked - CARDIAC Hx Pacemaker: No - PULMONARY Hx Respiratory Disorders: Yes Hx Asthma: Yes - NEUROLOGICAL Hx Paralysis: No - HEENT Hx HEENT Problems: No - RENAL Hx Dialysis: Yes Date of Last Dialysis Treatment: 08/27/16 - ENDOCRINE/METABOLIC Hx Diabetes Mellitus Type 2: Yes - HEMATOLOGICAL/ONCOLOGICAL Hx Blood Transfusions: Yes Hx Blood Transfusion Reaction: No - INTEGUMENTARY Hx Dermatological Problems: No - MUSCULOSKELETAL/RHEUMATOLOGICAL Hx Musculoskeletal Disorders: Yes - GASTROINTESTINAL Hx Gastrointestinal Disorders: No - GENITOURINARY/GYNECOLOGICAL Other/Comment: ureremic encephalopathy - PSYCHIATRIC Hx Emotional Abuse: No Hx Physical Abuse: No Hx Substance Use: No - SURGICAL HISTORY Other/Comment: left upper arm av fistula - ANESTHESIA Hx Anesthesia: Yes Hx Anesthesia Reactions: No Hx Malignant Hyperthermia: No Meds Allergies/Adverse Reactions: Allergies Allergy/AdvReac Type Severity Reaction Status Date / Time No Known Allergies Allergy Verified 01/29/17 13:33 Physical Exam - Constitutional Appears: No Acute Distress - Head Exam Head Exam: ATRAUMATIC, NORMOCEPHALIC - Eye Exam Eye Exam: EOMI, PERRL - ENT Exam ENT Exam: Mucous Membranes Moist - Neck Exam Neck exam: Positive for: Full Rom. Negative for: Lymphadenopathy, Tenderness, Thyromegaly Additional comments: No carotid bruits b/l - Respiratory Exam Respiratory Exam: Clear to Auscultation Bilateral. absent: Rales, Rhonchi, Wheezes - Cardiovascular Exam Cardiovascular Exam: RRR, +S1, +S2. absent: Diastolic murmur, Gallop, Rubs, Systolic Murmur Additional comments: Orthostatics negative - GI/Abdominal Exam GI & Abdominal Exam: Soft. absent: Distended, Guarding, Organomegaly, Rebound, Tenderness - Extremities Exam Extremities exam: Negative for: joint swelling, pedal edema, tenderness Additional comments: Palpable thrill and bruit present over LUE AV fistula - Neurological Exam Neurological exam: Alert, Oriented x3 Additional comments: b/l LE reflexes 1/4, negative babinski b/l, [place]-Hallpike negative - Psychiatric Exam Psychiatric exam: Normal Affect - Skin Skin Exam: Dry, Intact, Normal Color, Warm Results - Vital Signs Recent Vital Signs: Last Vital Signs Temp 98.2 F 02/07/17 15:45 Pulse 69 02/07/17 17:51 Resp 18 02/07/17 17:51 BP 128/79 02/07/17 17:51 Pulse Ox 98 02/07/17 17:51 - Labs Result Diagrams: 02/07/17 18:12 02/07/17 18:12 Labs: Laboratory Results - last 24 hr 02/07/17 02/07/17 02/07/17 18:12 18:12 18:12 WBC 11.8 H D RBC 3.72 Hgb 11.5 L Hct 34.2 L MCV 91.9 MCH 30.9 MCHC 33.6 RDW 14.9 H Plt Count 359 MPV 9.8 Gran % 77.5 H Lymph % (Auto) 17.7 L [place] % (Auto) 4.6 Eos % (Auto) 0.0 L Baso % (Auto) 0.2 Gran # 9.11 H Lymph # 2.1 [place] # 0.5 Eos # 0.0 Baso # 0.02 PT 11.1 INR 1.03 APTT 26.9 Sodium 137 Potassium 3.6 Chloride 93 L Carbon Dioxide 30 Anion Gap 18 BUN 29 H Creatinine 4.4 H Est GFR ( Amer) 13 Est GFR (Non-Af Amer) 10 Random Glucose 254 H Calcium 9.4 Magnesium 2.2 Total Bilirubin 0.5 AST 30 ALT 21 Alkaline Phosphatase 130 Lactate Dehydrogenase 444 Total Creatine Kinase 33 L Troponin I < 0.01 Total Protein 8.0 Albumin 4.3 Globulin 3.7 Albumin/Globulin Ratio 1.2 Assessment & Plan - Assessment and Plan (Free Text) Assessment: 56 yo Pashto F PMHx CVA in 2013, ESRD on hemodialysis, DM, HTN, HLD presenting with fatigue and dizziness after hemodialysis on Monday. Patient stated that symptoms typically worsen after dialysis and have been worsening for the last 4 weeks. 1. Vertigo - Meclizine 25mg Q6 PRN - EKG shows NSR with QT prolongation - CT shows atrophy and small vessel disease, multiple old infarcts, no bleed - PT/OT eval - Case management consulted for placement recommendations 2. ESRD on HD - Continue dialysis (T, , ) - Renal diet, 2 gm Na, carb consistent 3. DM2 - Maintain glucose 140-180 - Neurontin 100mg TID for neuritis - Humalog ISS 4. HTN - Norvasc 10mg PO daily - Coreg 12.5mg PO daily - Hydralazine 25mg BID 5. HLD - Lipitor 40mg PO daily 6. Hx of CVA - ASA and others as above 7. GI/DVT PPx - Protonix - SCDs Patient was discussed in detail with Dr. Ureña. <Garett Ureña - Last Filed: 02/08/17 05:54> Results - Vital Signs Recent Vital Signs: Last Vital Signs Temp 98.6 F 02/07/17 21:35 Pulse 72 02/07/17 23:59 Resp 20 02/07/17 22:39 BP 190/80 H 02/07/17 23:59 Pulse Ox 99 02/07/17 21:58 - Labs Result Diagrams: 02/07/17 18:12 02/07/17 18:12 Labs: Laboratory Results - last 24 hr 02/07/17 23:43 POC Glucose (mg/dL) 204 H Attending/Attestation - Attestation I have personally seen and examined this patient.: Yes I have fully participated in the care of the patient.: Yes I have reviewed all pertinent clinical information: Yes Notes (Text): 02/08/17 05:53 Patient was seen when he was in bed # 21 in the ER . Both him and son Dino speak Pashto and very little BULGARIAN. Agree with history , physical examination , assessment and plan.
--- NOTE | 2017-02-07 21:07 | CT ---
EXAM: CT Head Without Intravenous Contrast CLINICAL HISTORY: 56 years old, female; Pain; Headache; Headache not specified; Additional info: Fall; Brain CT TECHNIQUE: Axial computed tomography images of the head/brain without intravenous contrast. This CT exam was performed using one or more of the following dose reduction techniques: automated exposure control, adjustment of the mA and/or kV according to patient size, and/or use of iterative reconstruction technique. EXAM DATE/TIME: 02/07/2017 4:39 PM COMPARISON: CT - HEAD W/O CONTRAST 01/29/2017 5:59:01 PM FINDINGS: Brain: There is prominence of sulci gyri and ventricles. There is no midline shift. There is compensatory dilatation of the posterior horn of the right lateral ventricle, unchanged. 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 There are old bilateral basal ganglia lacunar infarcts. There is decreased attenuation in periventricular white matter. There are no focal masses. There are no focal hemorrhages. [place]-white differentiation is visualized. Ventricles: See above Bones: Cranial vault is intact. Soft tissues: unremarkable Sinuses: There is no acute sinusitis. Ears and mastoids: Middle ears and mastoids are unremarkable. Orbits: Orbital contents are unremarkable. IMPRESSION: Atrophy and small vessel disease; multiple old infarcts; no bleed
[2017-02-07 23:37] VITALS: BMI 41.0
[2017-02-07] MEDS: Insulin Lispro (humaLOG) MEDIUM Coverage SC SCH (23:43)
[2017-02-08 06:42] LABS: HEMOGLOBIN 11.3 gm/dL (12.0-16.0); MEAN CELL VOLUME 92.4 fL (80.0-105.0); MEAN CORPUSCULAR HEMOGLOBIN 30.8 pg (25.0-35.0); MEAN CORPUSCULAR HGB CONC 33.3 g/dl (31.0-37.0); MEAN PLATELET VOLUME 9.8 fl (7.0-11.0); RBC 3.67 10^6/uL (3.5-6.1); WHITE BLOOD COUNT 12.8 10^3/ul (4.5-11.0)
[2017-02-08 07:09] LABS: ALB/GLOB RATIO 1.2 (1.1-1.8); ALBUMIN 4.2 g/dL (3.0-4.8); CALCIUM 9.1 mg/dL (8.4-10.5); MAGNESIUM 2.2 mg/dL (1.7-2.2)
--- NOTE | 2017-02-08 08:37 | RAD ---
HISTORY: dizzy COMPARISON: 01/29/2017 FINDINGS: LUNGS: Shallow lung volumes -even more so than before Interval vague opacity lateral left mid lung zone -atelectasis versus small interval patchy infiltrate PLEURA: No significant pleural effusion identified, no pneumothorax apparent. CARDIOVASCULAR: Cardiomegaly -prominent central pulmonary vasculature -congestion and or crowding OSSEOUS STRUCTURES: No significant abnormalities. VISUALIZED UPPER ABDOMEN: Normal. OTHER FINDINGS: None. IMPRESSION: The prior lung volumes or even more shallow now. Interval discoid atelectasis versus patchy tiny infiltrate left lateral mid lung zone. Consider follow-up chest x-ray PA with greater inspiration. Cardiomegaly and prominent pulmonary central vasculature appearances/differentials -similar
[2017-02-08] MEDS: Insulin Lispro (humaLOG) MEDIUM Coverage SC SCH ×4 (09:05→22:02)
[2017-02-08] MEDS: [UNRECOGNIZED DRUG - REMARK] PO SCH (11:16)
--- NOTE | 2017-02-08 13:18 | CP.PCM.CON ---
<Patricia Enriquez - Last Filed: 02/08/17 13:35> History of Present Illness - History of Present Illness History of Present Illness: PGY-2 Neurology consult note for Dr Mcclelland. Reason for consult: dizziness not improved on meclizine, considering valium This is a 56 year old with PMH of CVA in 2013, ESRD on hemodialysis ( Tues, thur , sat), DM, HTN, HLD, h/o vertigo, gait instability ( walks with assistance), diabetic neuropathy presenting s/p fall after HD. Patient sates she was getting into the car when she fell. Patient states she started to experience dizziness during the dialysis, and the dizziness progressed and worsened when getting into the car. Patient admits to room spinning. Patient was here for similar problems few days ago and was discharged with meclizine, questionable compliance , since patient and patient's daughter doesn't know what meclizine is. Patient admits to sob, denies cp, admits to dizziness, admits to feeling like room spinning, ringing in the ear. Denies photophobia. Denies headache. PMHx: As stated above PSHx: LUE AV fistula Social: Denies tobacco, alcohol, drug use All: NKDA Home Meds: As per EMR Review of Systems - Review of Systems All systems: reviewed and no additional remarkable complaints except Review of Systems: All 12 point ROS reviewed, except as mentioned in HPI. Past Patient History - Infectious Disease Hx of Infectious Diseases: None - Past Social History Smoking Status: Never Smoked Alcohol: None Drugs: Denies Home Situation {Lives}: With Family - CARDIAC Hx Pacemaker: No - PULMONARY Hx Respiratory Disorders: Yes Hx Asthma: Yes - NEUROLOGICAL Hx Paralysis: No - HEENT Hx HEENT Problems: No - RENAL Hx Dialysis: Yes Date of Last Dialysis Treatment: 08/27/16 - ENDOCRINE/METABOLIC Hx Diabetes Mellitus Type 2: Yes - HEMATOLOGICAL/ONCOLOGICAL Hx Blood Transfusions: Yes Hx Blood Transfusion Reaction: No - INTEGUMENTARY Hx Dermatological Problems: No - MUSCULOSKELETAL/RHEUMATOLOGICAL Hx Musculoskeletal Disorders: Yes - GASTROINTESTINAL Hx Gastrointestinal Disorders: No - GENITOURINARY/GYNECOLOGICAL Other/Comment: ureremic encephalopathy - PSYCHIATRIC Hx Emotional Abuse: No Hx Physical Abuse: No Hx Substance Use: No - SURGICAL HISTORY Other/Comment: left upper arm av fistula - ANESTHESIA Hx Anesthesia: Yes Hx Anesthesia Reactions: No Hx Malignant Hyperthermia: No Meds Allergies/Adverse Reactions: Allergies Allergy/AdvReac Type Severity Reaction Status Date / Time No Known Allergies Allergy Verified 01/29/17 13:33 - Medications Medications: Current Medications Amlodipine Besylate (Norvasc) 10 mg PO DAILY [facility] Last Admin: 02/08/17 09:42 Dose: 10 mg Aspirin (Ecotrin) 81 mg PO DAILY [facility] Last Admin: 02/08/17 09:42 Dose: 81 mg Atorvastatin Calcium (Lipitor) 40 mg PO DAILY [facility] Last Admin: 02/08/17 09:42 Dose: 40 mg Calcium Acetate (Phoslo) 667 mg PO WM [facility] Last Admin: 02/08/17 13:11 Dose: 667 mg Carvedilol (Coreg) 12.5 mg PO DAILY [facility] Last Admin: 02/08/17 09:42 Dose: 12.5 mg Hydralazine HCl (Apresoline) 50 mg PO BID [facility] Last Admin: 02/08/17 09:42 Dose: 50 mg Insulin Human Lispro (Humalog Med) 0 units SC ACHS [facility] PRN Reason: Protocol Last Admin: 02/08/17 13:11 Dose: 1 units Isosorbide Mononitrate (Imdur) 60 mg PO DAILY [facility] Last Admin: 02/08/17 09:42 Dose: 60 mg Meclizine HCl (Antivert) 25 mg PO Q6H PRN PRN Reason: Dizziness Last Admin: 02/08/17 10:38 Dose: 25 mg Non-Formulary Medication (B Complex W-C No.20/Folic Acid [Renal Caps Softgel]) 1 cap PO DAILY [facility] Last Admin: 02/08/17 11:16 Dose: Not Given Pantoprazole Sodium (Protonix Inj) 40 mg IVP DAILY [facility] Last Admin: 02/08/17 09:42 Dose: 40 mg Torsemide (Demadex) 100 mg PO BID [facility] Physical Exam - Constitutional Appears: Chronically Ill - Head Exam Head Exam: ATRAUMATIC, NORMAL INSPECTION, NORMOCEPHALIC - Eye Exam Eye Exam: EOMI, Normal appearance, PERRL. absent: Scleral icterus Pupil Exam: NORMAL ACCOMODATION, PERRL - ENT Exam ENT Exam: Mucous Membranes Moist - Neck Exam Neck exam: Positive for: Normal Inspection - Respiratory Exam Respiratory Exam: Clear to Auscultation Bilateral, NORMAL BREATHING PATTERN. absent: Rales, Rhonchi, Wheezes, Respiratory Distress, Stridor - Cardiovascular Exam Cardiovascular Exam: REGULAR RHYTHM, +S1, +S2 - GI/Abdominal Exam GI & Abdominal Exam: Normal Bowel Sounds, Soft. absent: Tenderness (obese abdomen. ) - Extremities Exam Extremities exam: Positive for: pedal edema - Neurological Exam Neurological exam: Alert, CN II-XII Intact, Oriented x3, Reflexes Normal Additional comments: Alert and awake x3, speaking in full sentences, following commands. Normal finger to nose, no pronator drift. No tremors, no muscle rigidities. Reflexes are sluggish throughout. negative babinski. [place]-Hallpike attempted, patient c/o dizziness during the maneuver. Muscle tone intact, moving all her extremities grossly. Gait deferred. - Psychiatric Exam Psychiatric exam: Depressed - Skin Skin Exam: Dry, Warm Results - Vital Signs Recent Vital Signs: Last Vital Signs Temp 98.3 F 02/08/17 08:41 Pulse 76 02/08/17 09:42 Resp 20 02/08/17 08:41 BP 150/79 02/08/17 09:42 Pulse Ox 100 02/08/17 08:41 - Labs Result Diagrams: 02/08/17 06:00 02/08/17 06:00 Labs: Laboratory Results - last 24 hr 02/07/17 02/08/17 02/08/17 23:43 06:00 06:00 WBC 12.8 H RBC 3.67 Hgb 11.3 L Hct 33.9 L MCV 92.4 MCH 30.8 MCHC 33.3 RDW 15.0 H Plt Count 374 MPV 9.8 Sodium 137 Potassium 4.0 Chloride 94 L Carbon Dioxide 27 Anion Gap 20 BUN 49 H Creatinine 6.2 H Est GFR ( Amer) 8 Est GFR (Non-Af Amer) 7 POC Glucose (mg/dL) 204 H Random Glucose 208 H Calcium 9.1 Phosphorus 4.9 H Magnesium 2.2 Total Bilirubin 0.6 AST 26 ALT 16 Alkaline Phosphatase 124 Total Protein 7.7 Albumin 4.2 Globulin 3.5 Albumin/Globulin Ratio 1.2 02/08/17 02/08/17 07:45 11:44 WBC RBC Hgb Hct MCV MCH MCHC RDW Plt Count MPV Sodium Potassium Chloride Carbon Dioxide Anion Gap BUN Creatinine Est GFR ( Amer) Est GFR (Non-Af Amer) POC Glucose (mg/dL) 187 H 167 H Random Glucose Calcium Phosphorus Magnesium Total Bilirubin AST ALT Alkaline Phosphatase Total Protein Albumin Globulin Albumin/Globulin Ratio Assessment & Plan - Assessment and Plan (Free Text) Assessment: This is a 56 year old with PMH of CVA in 2013, ESRD on hemodialysis ( Tues, thur , sat), DM, HTN, HLD, h/o vertigo, gait instability ( walks with assistance), diabetic neuropathy presenting s/p fall after HD. Neurology consulted for unresolved dizziness on meclizine. CT head w/o contrast: There is prominence of sulci gyri and ventricles. There is no midline shift. There is compensatory dilatation of the posterior horn of the right lateral ventricle, unchanged. 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 There are old bilateral basal ganglia lacunar infarcts. There is decreased attenuation in periventricular white matter. There are no focal masses. There are no focal hemorrhages. [place]-white differentiation is visualized. Plan: - Ok with valium, after confirming the compliance with meclizine. - rec vestibular therapy - salt reduction diet advised. - Patient is stable neurologically - Thank you for consulting Dr Mcclelland. Patient, seen, examined, and discussed with Dr Mcclelland. - Date & Time Date: 02/08/17 Time: 13:15 <Dionicio Mcclelland - Last Filed: 02/08/17 14:15> Meds - Medications Medications: Current Medications Amlodipine Besylate (Norvasc) 10 mg PO DAILY [facility] Last Admin: 02/08/17 09:42 Dose: 10 mg Aspirin (Ecotrin) 81 mg PO DAILY [facility] Last Admin: 02/08/17 09:42 Dose: 81 mg Atorvastatin Calcium (Lipitor) 40 mg PO DAILY [facility] Last Admin: 02/08/17 09:42 Dose: 40 mg Calcium Acetate (Phoslo) 667 mg PO WM [facility] Last Admin: 02/08/17 13:11 Dose: 667 mg Carvedilol (Coreg) 12.5 mg PO DAILY [facility] Last Admin: 02/08/17 09:42 Dose: 12.5 mg Diazepam (Valium) 5 mg PO BID [facility] PRN Reason: Protocol Hydralazine HCl (Apresoline) 50 mg PO BID [facility] Last Admin: 02/08/17 09:42 Dose: 50 mg Insulin Human Lispro (Humalog Med) 0 units SC ACHS [facility] PRN Reason: Protocol Last Admin: 02/08/17 13:11 Dose: 1 units Isosorbide Mononitrate (Imdur) 60 mg PO DAILY [facility] Last Admin: 02/08/17 09:42 Dose: 60 mg Meclizine HCl (Antivert) 25 mg PO Q6H PRN PRN Reason: Dizziness Last Admin: 02/08/17 10:38 Dose: 25 mg Non-Formulary Medication (B Complex W-C No.20/Folic Acid [Renal Caps Softgel]) 1 cap PO DAILY [facility] Last Admin: 02/08/17 11:16 Dose: Not Given Pantoprazole Sodium (Protonix Inj) 40 mg IVP DAILY [facility] Last Admin: 02/08/17 09:42 Dose: 40 mg Torsemide (Demadex) 100 mg PO BID [facility] Results - Vital Signs Recent Vital Signs: Last Vital Signs Temp 98.3 F 02/08/17 08:41 Pulse 76 02/08/17 09:42 Resp 20 02/08/17 08:41 BP 150/79 02/08/17 09:42 Pulse Ox 100 02/08/17 08:41 - Labs Result Diagrams: 02/08/17 06:00 02/08/17 06:00 Labs: Laboratory Results - last 24 hr 02/07/17 02/08/17 02/08/17 23:43 06:00 06:00 WBC 12.8 H RBC 3.67 Hgb 11.3 L Hct 33.9 L MCV 92.4 MCH 30.8 MCHC 33.3 RDW 15.0 H Plt Count 374 MPV 9.8 Sodium 137 Potassium 4.0 Chloride 94 L Carbon Dioxide 27 Anion Gap 20 BUN 49 H Creatinine 6.2 H Est GFR ( Amer) 8 Est GFR (Non-Af Amer) 7 POC Glucose (mg/dL) 204 H Random Glucose 208 H Calcium 9.1 Phosphorus 4.9 H Magnesium 2.2 Total Bilirubin 0.6 AST 26 ALT 16 Alkaline Phosphatase 124 Total Protein 7.7 Albumin 4.2 Globulin 3.5 Albumin/Globulin Ratio 1.2 02/08/17 02/08/17 07:45 11:44 WBC RBC Hgb Hct MCV MCH MCHC RDW Plt Count MPV Sodium Potassium Chloride Carbon Dioxide Anion Gap BUN Creatinine Est GFR ( Amer) Est GFR (Non-Af Amer) POC Glucose (mg/dL) 187 H 167 H Random Glucose Calcium Phosphorus Magnesium Total Bilirubin AST ALT Alkaline Phosphatase Total Protein Albumin Globulin Albumin/Globulin Ratio Attending/Attestation - Attestation I have personally seen and examined this patient.: Yes I have fully participated in the care of the patient.: Yes I have reviewed all pertinent clinical information: Yes Notes (Text): 02/08/17 14:15 she has positional vertigo.
--- NOTE | 2017-02-08 17:08 | CP.PCM.PCO ---
Physician Communication Note - Physician Communication Note Physician Communication Note: Spoke w/ family who want her to stay till after dialysis; SW agree 2day obs
--- NOTE | 2017-02-08 18:53 | CP.PCM.PN ---
Subjective - Date & Time of Evaluation Date of Evaluation: 02/08/17 Time of Evaluation: 18:52 - Subjective Subjective: pt needs angiocath insertion. Objective - Vital Signs/Intake and Output Vital Signs (last 24 hours): Temp Pulse Resp BP Pulse Ox 98.1 F 69 20 168/83 H 98 02/08/17 16:00 02/08/17 16:00 02/08/17 16:00 02/08/17 16:00 02/08/17 16:00 Intake and Output: 02/08/17 02/08/17 06:59 18:59 Intake Total 600 Balance 600 - Medications Medications: Current Medications Amlodipine Besylate (Norvasc) 10 mg PO DAILY [facility] Last Admin: 02/08/17 09:42 Dose: 10 mg Aspirin (Ecotrin) 81 mg PO DAILY [facility] Last Admin: 02/08/17 09:42 Dose: 81 mg Atorvastatin Calcium (Lipitor) 40 mg PO DAILY [facility] Last Admin: 02/08/17 09:42 Dose: 40 mg Calcium Acetate (Phoslo) 667 mg PO WM [facility] Last Admin: 02/08/17 17:12 Dose: 667 mg Carvedilol (Coreg) 12.5 mg PO DAILY [facility] Last Admin: 02/08/17 09:42 Dose: 12.5 mg Diazepam (Valium) 2 mg PO BID [facility] PRN Reason: Protocol Last Admin: 02/08/17 17:12 Dose: 2 mg Hydralazine HCl (Apresoline) 50 mg PO BID [facility] Last Admin: 02/08/17 09:42 Dose: 50 mg Insulin Human Lispro (Humalog Med) 0 units SC [facility] PRN Reason: Protocol Last Admin: 02/08/17 17:13 Dose: 1 units Isosorbide Mononitrate (Imdur) 60 mg PO DAILY [facility] Last Admin: 02/08/17 09:42 Dose: 60 mg Meclizine HCl (Antivert) 25 mg PO Q6H PRN PRN Reason: Dizziness Last Admin: 02/08/17 10:38 Dose: 25 mg Non-Formulary Medication (B Complex W-C No.20/Folic Acid [Renal Caps Softgel]) 1 cap PO DAILY [facility] Last Admin: 02/08/17 11:16 Dose: Not Given Pantoprazole Sodium (Protonix Inj) 40 mg IVP DAILY [facility] Last Admin: 02/08/17 09:42 Dose: 40 mg Torsemide (Demadex) 100 mg PO BID [facility] Last Admin: 02/08/17 17:12 Dose: 100 mg - Labs Labs: 02/08/17 06:00 02/08/17 06:00 PT 11.1 Seconds (9.9-11.8) 02/07/17 18:12 INR 1.03 (0.93-1.08) 02/07/17 18:12 APTT 26.9 Seconds (23.7-30.8) 02/07/17 18:12 Assessment and Plan - Assessment and Plan (Free Text) Assessment: 24 guage angiocath inserted in rt elbow area.
[2017-02-09] MEDS: Insulin Lispro (humaLOG) MEDIUM Coverage SC SCH ×3 (08:19→16:28)
[2017-02-09] MEDS: [UNRECOGNIZED DRUG - REMARK] PO SCH (10:54)
--- NOTE | 2017-02-09 11:22 | CP.PCM.CON ---
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), presented day before yesterday with complaint of dizziness; nephrology service being consulted for ESRD management; Patient has been complaining of dizziness for the past few weeks; very difficult to obtain further details regarding dizziness (even using Kiswahili language interpreter) as patient cannot focus on questions being asked; she does mention that sensation occurs with movement; also mentions hearing a sound in her ear and headaches; she otherwise denies nausea/vomiting; is eating well; Regarding her tendency for excessive weight gains in between HD sessions, she denies excessive salt intake; reports occasional shortness of breath as well as chest pains and palpitations; urinates about a small cup every morning, denies any improvement since being recently put on torsemide; Review of Systems - Constitutional Constitutional: absent: Chills, Fever - EENT Nose/Mouth/Throat: Dysphagia - Cardiovascular Cardiovascular: As Per HPI - Respiratory Respiratory: Dyspnea - Gastrointestinal Additional comments: constipated since several days despite being on stool softener; - Genitourinary Genitourinary: As Per HPI - Musculoskeletal Musculoskeletal: Back Pain - Integumentary Integumentary: absent: Pruritus, Rash - Neurological Neurological: As Per HPI - Psychiatric Psychiatric: absent: Anxiety, Depression - Hematologic/Lymphatic Hematologic: Easy Bleeding Past Patient History - Infectious Disease Hx of Infectious Diseases: None - Past Medical History & Family History Past Medical History?: Yes - Past Social History Smoking Status: Never Smoked Alcohol: None Drugs: Denies Home Situation {Lives}: With Family - CARDIAC Hx Pacemaker: No - PULMONARY Hx Respiratory Disorders: Yes Hx Asthma: Yes - NEUROLOGICAL Hx Paralysis: No - HEENT Hx HEENT Problems: No - RENAL Hx Dialysis: Yes Date of Last Dialysis Treatment: 08/27/16 - ENDOCRINE/METABOLIC Hx Diabetes Mellitus Type 2: Yes - HEMATOLOGICAL/ONCOLOGICAL Hx Blood Transfusions: Yes Hx Blood Transfusion Reaction: No - INTEGUMENTARY Hx Dermatological Problems: No - MUSCULOSKELETAL/RHEUMATOLOGICAL Hx Musculoskeletal Disorders: Yes - GASTROINTESTINAL Hx Gastrointestinal Disorders: No - GENITOURINARY/GYNECOLOGICAL Other/Comment: ureremic encephalopathy - PSYCHIATRIC Hx Emotional Abuse: No Hx Physical Abuse: No Hx Substance Use: No - SURGICAL HISTORY Other/Comment: left upper arm av fistula - ANESTHESIA Hx Anesthesia: Yes Hx Anesthesia Reactions: No Hx Malignant Hyperthermia: No Meds Home Medications: Home Medication List Medication Instructions Recorded Confirmed Type Meclizine [Meclizine*] 25 mg PO Q6H PRN #8 tab 02/09/17 Rx Torsemide [Demadex] 100 mg PO BID tab 02/09/17 Rx diaZEpam [Valium] 2 mg PO BID #6 tab 02/09/17 Rx Allergies/Adverse Reactions: Allergies Allergy/AdvReac Type Severity Reaction Status Date / Time No Known Allergies Allergy Verified 01/29/17 13:33 - Medications Medications: Current Medications Amlodipine Besylate (Norvasc) 10 mg PO DAILY [facility] Last Admin: 02/09/17 10:53 Dose: 10 mg Aspirin (Ecotrin) 81 mg PO DAILY [facility] Last Admin: 02/09/17 10:53 Dose: 81 mg Atorvastatin Calcium (Lipitor) 40 mg PO DAILY [facility] Last Admin: 02/09/17 10:54 Dose: 40 mg Calcium Acetate (Phoslo) 667 mg PO WM [facility] Last Admin: 02/09/17 08:20 Dose: 667 mg Carvedilol (Coreg) 12.5 mg PO DAILY [facility] Last Admin: 02/09/17 10:53 Dose: 12.5 mg Diazepam (Valium) 2 mg PO BID [facility] PRN Reason: Protocol Last Admin: 02/09/17 10:54 Dose: 2 mg Hydralazine HCl (Apresoline) 50 mg PO BID [facility] Last Admin: 02/08/17 09:42 Dose: 50 mg Insulin Human Lispro (Humalog Med) 0 units SC ACHS [facility] PRN Reason: Protocol Last Admin: 02/09/17 08:19 Dose: 3 units Isosorbide Mononitrate (Imdur) 60 mg PO DAILY [facility] Last Admin: 02/09/17 10:53 Dose: 60 mg Meclizine HCl (Antivert) 25 mg PO Q6H PRN PRN Reason: Dizziness Last Admin: 02/08/17 10:38 Dose: 25 mg Non-Formulary Medication (B Complex W-C No.20/Folic Acid [Renal Caps Softgel]) 1 cap PO DAILY [facility] Last Admin: 02/09/17 10:54 Dose: Not Given Pantoprazole Sodium (Protonix Inj) 40 mg IVP DAILY [facility] Last Admin: 02/09/17 10:53 Dose: 40 mg Torsemide (Demadex) 100 mg PO BID [facility] Last Admin: 02/09/17 11:05 Dose: 100 mg Physical Exam - Head Exam Head Exam: NORMAL INSPECTION - Eye Exam Eye Exam: Normal appearance - ENT Exam ENT Exam: Mucous Membranes Moist - Neck Exam Neck exam: Positive for: Normal Inspection. Negative for: Lymphadenopathy, Thyromegaly - Respiratory Exam Respiratory Exam: Clear to Auscultation Bilateral, NORMAL BREATHING PATTERN. absent: Rales, Rhonchi, Wheezes, Respiratory Distress - Cardiovascular Exam Cardiovascular Exam: REGULAR RHYTHM, +S1, +S2 - GI/Abdominal Exam GI & Abdominal Exam: Soft. absent: Distended, Tenderness - Exam Exam: absent: Bladder Distension - Extremities Exam Extremities exam: Positive for: normal capillary refill, pedal pulses present Additional comments: no leg edema; - Neurological Exam Neurological exam: Alert Additional comments: numbness in feet; - Skin Skin Exam: Normal Color, Warm Results - Vital Signs Recent Vital Signs: Last Vital Signs Temp 99 F 02/09/17 09:42 Pulse 72 02/09/17 10:53 Resp 19 02/09/17 09:42 BP 202/90 H 02/09/17 10:53 Pulse Ox 97 02/09/17 09:42 - Labs Result Diagrams: 02/08/17 06:00 02/08/17 06:00 Labs: Laboratory Results - last 24 hr 02/08/17 02/08/17 02/08/17 11:44 16:05 21:20 POC Glucose (mg/dL) 167 H 161 H 108 02/09/17 07:28 POC Glucose (mg/dL) 245 H - Imaging and Cardiology Chest x-ray Status: Image reviewed by me Additional comment: CXR clear; Assessment & Plan (1) End stage renal disease on dialysis Assessment and Plan: Stable electrolyte status; excessive intradialytic weight gains, will assess before HD today and UF as necessary; otherwise, HD today per routine; Status: Chronic (2) Hypertensive CKD, ESRD on dialysis Assessment and Plan: BP markedly elevated today before HD; hydralazine being held to help in UF as patient often drops BP during HD; continue rest of meds; Status: Chronic (3) Dizziness Assessment and Plan: Positional vertigo per neurology; patient counseled that she will need to participate in vestibular exercises for treatment and that she should expect to feel uncomfortable during these exercises; Status: Acute (4) Anemia Assessment and Plan: Hgb around goal for ESRD (10-11 g); continue with outpatient aranesp per protocol; Status: Chronic (5) Chronic kidney disease-mineral and bone disorder Assessment and Plan: Phos has been elevated; phoslo recently increased to 3 tabs tid w/ meals as outpatient, will continue same; Status: Chronic
[2017-02-09 13:06] VITALS: PULSE 78
[2017-02-09 13:55] LABS: BASO # 0.03 K/mm3 (0.0-2.0); BASO % 0.3 % (0.0-3.0); GRAN # 6.83 (1.4-6.5); GRAN % 62.1 % (50.0-68.0); HEMOGLOBIN 10.2 gm/dL (12.0-16.0); LYMPH # 3.6 (1.2-3.4); LYMPH % 32.8 % (22.0-35.0); MEAN CELL VOLUME 91.2 fL (80.0-105.0); MEAN PLATELET VOLUME 9.8 fl (7.0-11.0); MONO # 0.5 (0.1-0.6); MONO % 4.8 % (1.0-6.0); PLATELET COUNT 360 10^3/uL (120.0-450.0); RBC 3.29 10^6/uL (3.5-6.1); RED CELL DISTRIBUTION WIDTH 14.7 % (11.5-14.5)
[2017-02-09 14:06] LABS: ALB/GLOB RATIO 1.2 (1.1-1.8); ALBUMIN 3.8 g/dL (3.0-4.8); MAGNESIUM 2.4 mg/dL (1.7-2.2)
[2017-02-09 20:20] VITALS: BP 188/86; RESP 20; TEMP 98; O2SAT 95
--- NOTE | 2017-02-09 21:11 | CON ---
HISTORY OF PRESENT ILLNESS: The patient is a 56 years old [place] female. The patient has multiple medical issues including end-stage renal disease, on hemodialysis. Psych consult was called for evaluation of possible depression and anxiety. The patient was admitted on the medical side for episodes of dizziness as well as unstable gait. The patient was seen and examined. This telegraphic typewriter operator is very familiar with this patient from the previous admission on the medical side. The patient is Irish speaking, and this telegraphic typewriter operator utilized #[id number] was utilized. The patient presented to be alert, pleasant, cooperative. The patient is aware of all the circumstances of her admission on the medical side. The patient knows about her medical condition and remembered this telegraphic typewriter operator. The patient reports that now she feels a little bit better. The patient denies feeling depressed. The patient reports that she is happy with her family. Family is taking good care of the patient. The patient denied any thought of harming herself or others. At times, the patient reports that she has depressive feelings because her kids are in [place], but besides that the patient denied any other depressive symptoms. The patient is not feeling anxious. The patient reports that to have fair appetite. At times, the patient has insomnia which seems to be chronic. The patient denies hearing voices. Denies seeing things. The patient denied thought of her harming herself or others. PHYSICAL EXAMINATION: VITAL SIGNS: Reviewed. Pulse is 78, blood pressure 145/75, respirations 19, oxygen saturation 97. MEDICATIONS: Reviewed. The patient is on Norvasc, aspirin, Lipitor, PhosLo, Coreg, Valium, hydralazine, Apresoline, Humalog, Imdur, Antivert, Protonix, and Demadex. PAST PSYCHIATRIC HISTORY: The patient denies history of being depressed, denies history of being admitted to the psychiatric inpatient unit. The patient denies history of suicidal attempt. MENTAL STATUS EXAMINATION: The patient appears to be alert, oriented to person, cooperative, fair eye contacts. Speech was normal rate, tone quality, and quantity. Thought process over inclusive and somewhat circumstantial, but much better to compare with the previous admission. Thought content; the patient denies visual,auditory, or tactile hallucinations. Denies paranoid ideations. The patient denies thought of harming herself or others. Denies intents or plan. Insight and judgment are fair. Impulses are well controlled. IMPRESSION: Rule out adjustment disorder, rule out mood disorder due to general medical condition. The patient has end-stage renal disease, on hemodialysis. The patient was admitted for evaluation of dizziness and lightheadedness as well as unstable gait. PLAN: Continue current management. The patient denied being depressed. The patient denies being anxious. The patient denies thought of killing herself or others. The patient does not present in eminent danger to self or others. Discharge and we will sign off. The patient should not be on any medications, might benefit from talking with the therapist, but the patient is Irish speaking, and she could initiate follow up appointment with outpatient provider if she would like to, but from discharge prospective, the patient has lot of medical issues, and she has reasons to feel mildly depressed. Besides that, there is no acute issues. Discharge and we will sign off. Thanking you very much for letting me to participate in care of your patient. Should you have any questions, give me a call back. Judi Ball MD
== END 2017-02-09 23:23 | disposition home or self-care (01) ==
LOC: ED 15:33 → ERH 19:43 → 3RSO 22:21
PROVIDERS: ADMIT Hospitalist; ATTEND Internal Medicine
DX: H81.10 Benign paroxysmal vertigo, unspecified ear (principal); I12.0 Hypertensive chronic kidney disease with stage 5 chronic kidney disease or end stage renal disease; E11.22 Type 2 diabetes mellitus with diabetic chronic kidney disease; N18.6 End stage renal disease; D64.9 Anemia, unspecified; E11.40 Type 2 diabetes mellitus with diabetic neuropathy, unspecified; E78.5 Hyperlipidemia, unspecified; G47.00 Insomnia, unspecified; I73.9 Peripheral vascular disease, unspecified; J45.909 Unspecified asthma, uncomplicated; M89.9 Disorder of bone, unspecified; Q04.6 Congenital cerebral cysts; W19.XXXA Unspecified fall, initial encounter; Z79.4 Long term (current) use of insulin; Z86.73 Personal history of transient ischemic attack (TIA), and cerebral infarction without residual deficits; Z99.2 Dependence on renal dialysis; G93.49 Other encephalopathy; F43.20 Adjustment disorder, unspecified; F06.30 Mood disorder due to known physiological condition, unspecified
CPT/HCPCS: 36415; 70450; 71010; 80053; 82550; 82948; 83615; 83735; 84100; 84484; 85025; 85027; 85610; 85730; 93005; 97162; 97530; 99285; C9113; G0378; G8978; G8979